=== PATIENT | male | born 1930 | race Caucasian/White ===

== ENCOUNTER → 2016-06-28 | Outpatient (REF) | payer OTHER ==
[~2016-06-28] MED LIST: /METO25TAB PO; ACET-654 PO; ACET65TA OR; ALKA SELTZER PO; ASPI325T PO; ASPI325T5 PO; Advil PM PO; BACTDSTA PO; CIPR25SS OR; COLA50CA3 PO; CYMB1CAP PO; FINA5TAB2 PO; GLUC500C4 PO; GLUC500T3 PO; LEVA500T OR; LEVO100T PO; LIPI20TA PO; LOPR50TA OR; LOPR50TA PO; Lovastatin PO; MULTIVIT PO; OXYC-208 PO; PENN1.5S2 TOP; PRIL20CA OR; PRIL20TA2 PO; PROP150T PO; STOO100C PO; SYNT50TA PO; TYLE325T5 PO; VESI10TA PO; Vitamin E PO; [UNRECOGNIZED DRUG - OTHER] PO; alleve PO
[2016-06-28 18:18] LABS: ALBUMIN 3.7 GM/DL (3.2-5.2); ALBUMIN/GLOBULIN RATIO 1.06 (1.00-1.93); BILIRUBIN,TOTAL 0.4 MG/DL (0.2-1.0); CALCIUM LEVEL 8.8 MG/DL (8.8-10.2); CREATININE FOR GFR 1.31 MG/DL (0.70-1.30); FREE T4 0.63 NG/DL (0.76-1.46); GLOMERULAR FILTRATION RATE 55.4 (>35); POTASSIUM SERUM 4.5 MEQ/L (3.5-5.1); TOTAL PROTEIN 7.2 GM/DL (6.4-8.2)
== END ==
LOC: M SFHCCLAY 13:43
PROVIDERS: ATTEND Family Medicine
DX: E78.2 Mixed hyperlipidemia (principal); E03.9 Hypothyroidism, unspecified

== ENCOUNTER → 2016-07-02 | Outpatient (CLI) | payer OTHER ==
--- NOTE | 2016-07-04 02:08 | ECWPNPC ---
PATIENT NAME: GALE SANDOVAL : 1930 GENDER: MALE VISIT DATE: 07/02/2016 DISCHARGE DATE: 07/02/161538 VISIT LOCKED DATE TIME: PHYSICIAN: GIDEON CROOKS PHYSICIAN PAGER NO: [phone] RESOURCE: GIDEON CROOKS REASON FOR APPOINTMENT 1. 6MO F/U VISIT HISTORY OF PRESENT ILLNESS HISTORY OF PRESENT ILLNESS: 85 Y/O MALE HERE FOR ROUTINE F/U AND MANAGEMENT OF CHRONIC GENERALIZED PAIN. RATING PAIN VAS 0/10.TAKING CYMBALTA 30MG DAILY.FINDS CYMBALTA EFFECTIVE AT REDUCING PAIN AND KEEPING HIM COMFORTABLE.DENIES SIDE EFFECTS.REPORTING WEAKNESS ISSUES PERIODICALLY IN LEGS WHEN WALKING WITHOUT CANE. PAIN THE PATIENT DESCRIBES THE PAIN... THE PATIENT DESCRIBES THE PAIN... FALL RISK SCREENING: SCREENING :NO FALLS IN THE PAST YEAR CURRENT MEDICATIONS TAKING COLACE 100 MG CAPSULE 1 CAPSULE NEEDED ORALLY FOUR TIMES DAILY TAKING GLUCOSAMINE 550 MG CAPSULE 2 ORALLY 1000MG TWICE DAILY TAKING ASPIRIN 325MG TABLET CHEWABLE 1 TABLET ORALLY ONCE A DAY TAKING PROPAFENONE HCL 150MG 1 TAB ORALLY BID TAKING MULTI FOR HIM TABLET 2 ORALLY CHEWABLES DAILY TAKING DULOXETINE HCL 30 MG CAPSULE DELAYED RELEASE PARTICLES 1 CAPSULE ORALLY DAILY TAKING PRILOSEC OTC 20 MG TABLET DELAYED RELEASE 1 TABLET ORALLY ONCE A DAY TAKING LEVOTHYROXINE SODIUM 50MCG TABLET 1 TABLET EVERY MORNING ON AN EMPTY STOMACH ORALLY DAILY TAKING MYRBETRIQ 50 MG TABLET EXTENDED RELEASE 24 HOUR 1 TABLET ORALLY ONCE A DAY TAKING LOVASTATIN 40 MG TABLET 1 TABLET WITH A MEAL ORALLY ONCE A DAY TAKING MYRBETRIQ 50 MG TAB TAKE ONE TABLET BY MOUTH EVERY DAY TAKING VITAMIN E 200 UNIT CAPSULE 1 CAPSULE ORALLY ONCE A DAY DISCONTINUED VITAMIN E 800 IU 1 DAILY MEDICATION LIST REVIEWED AND RECONCILED WITH THE PATIENT PAST MEDICAL HISTORY HYPOTHYROID HX STOMACH ULCERS ELEVATED TRIGLYCERIDES ELEVATED CHOLESTEROL HEART PALPITATIONS HERNIAS UTI BPH ALLERGIES MSG: NAUSEA/VOMITING: CONTRAINDICATION PREVACID: COLD CHILLS AND SHAKES: SIDE EFFECTS ADVIL PM: ELEVATED HEART RATE: CONTRAINDICATION CIPRO: RASH: ALLERGY LEVAQUIN: RASH: ALLERGY SOCIAL HISTORY GENERAL: PAIN CLINIC PFS, CLERGY, PUBLIC HEALTH REFERRALS CLERGY REFERRAL NEEDED?NO WAS THE PROVIDER NOTIFIED OF ANY PERTINENT INFO?NO PFS REFERRAL NEEDED?NO PUBLIC HEALTH REFERRAL NEEDED?NO PATIENT: ____. REVIEW OF SYSTEMS CONSTITUTIONAL: ANY CHANGE IN YOUR MEDICAL CONDITION? NO . CHILLS NO . FEVER NO . INFECTION: DO YOU HAVE NEW INFECTIONS? NO . DO YOU HAVE HISTORY OF MRSA? NO . MUSCULOSKELETAL: ANY NEW PATTERNS OF PAIN OR NUMBNESS? NO . GASTROENTEROLOGY: ANY NEW CHANGE IN BOWEL CONTROL? NO . GENITOURINARY: ANY NEW CHANGE IN BLADDER CONTROL? NO . IS THERE A CHANCE YOU COULD BE ? NO . HEMATOLOGY/LYMPH: DO YOU TAKE ANY BLOOD THINNERS? (FOR EXAMPLE- COUMADIN, PLAVIX, AGGRENOX, PLATEL, PRADAXA, OR XARELTO) NO . WHEN WAS YOUR LAST DOSE? DATE: TIME: . NEUROLOGY: HAVE YOU FALLEN IN THE PAST 6 MONTHS? NO . ANY NEW EXTREMITY NUMBNESS OR WEAKNESS? NO . CARDIOLOGY: DO YOU HAVE A PACEMAKER OR DEFIBRILLATOR? NO . RESPIRATORY: HAVE YOU BEEN SICK IN THE PAST WEEK? NO . FEVER NO . FLU LIKE SYMPTOMS? NO . COUGH NO . INTEGUMENTARY: DO YOU HAVE ANY RASHES OR OPEN SORES? NO . ALLERGIC/IMMUNO: ARE YOU ALLERGIC TO SHELLFISH OR IV DYE? NO . ANY NEW ALLERGIES? NO . PSYCHIATRIC: DO YOU HAVE THOUGHTS OF HURTING YOURSELF OR SOMEONE ELSE? NO . ARE YOU ABUSED, NEGLECTED, OR IN AN UNSAFE ENVIRONMENT? NO . ENDOCRINOLOGY: ARE YOU DIABETIC? NO . OTHER: DO YOU NEED ANY PRESCRIPTIONS? NO . IF YES, PLEASE LIST: ____ . ANY NEW PROBLEMS WITH YOUR MEDICATIONS? NO . WHEN DID YOU LAST EAT? ____ . WHEN DID YOU LAST DRINK? ____ . WHAT DID YOU LAST DRINK? ____ . NAME OF PERSON DRIVING YOU HOME? ____ . DO YOU HAVE ANY OTHER QUESTIONS OR CONCERNS NO . REVIEWED BY: PROVIDER: GIDEON ROGERS . VITAL SIGNS WT 163 LBS, HT 68 IN, BMI 24.78 INDEX, BP 111/58 MM HG, HR 68 /MIN, RR 16 /MIN, TEMP 99.0 F, OXYGEN SAT % 92%, NA INITIALS SC 15:14, REVIEWED BY: AD. EXAMINATION GENERAL EXAMINATION: LUNGS:LUNG SOUNDS ARE CLEAR. HEART:HEART RATE REGULAR. MUSCULOSKELETAL:*, MUSCLE STRENGTH TESTING 5/5 BILATERAL, PALPATION: NEGATIVE FOR PAIN OVER L/S SPINE. NEGATIVE FOR PAIN OVER L/S PARSPINALS. ASSESSMENTS CHRONIC BILATERAL LOW BACK PAIN WITHOUT SCIATICA - M54.5 (PRIMARY) TREATMENT CHRONIC BILATERAL LOW BACK PAIN WITHOUT SCIATICA REFILL DULOXETINE HCL CAPSULE DELAYED RELEASE PARTICLES, 30 MG, 1 CAPSULE, ORALLY, DAILY, 90 DAY(S), 90 CAPSULE, REFILLS 1 PROCEDURE CODES FA211 ESTABILISHED PATIENT [facility] CHARGE DISPOSITION & COMMUNICATION FOLLOW UP 6 MONTHS ELECTRONICALLY SIGNED BY SUE PETERSEN ON 07/02/2016 AT 03:42 PM EDT DISCLAIMER : THIS IS A VISIT SUMMARY EXTRACTED FROM THE [employer] CHART. IT IS NOT A COPY OF THE [employer] PROGRESS NOTE. MTDD
== END ==
LOC: M PAIN 15:00
PROVIDERS: ATTEND Nurse Practitioner Family
DX: G89.4 Chronic pain syndrome (principal); M54.5 Low back pain; E03.9 Hypothyroidism, unspecified; E78.2 Mixed hyperlipidemia; R00.2 Palpitations; Z91.02 Food additives allergy status; Z88.8 Allergy status to other drugs, medicaments and biological substances; Z79.82 Long term (current) use of aspirin; Z79.899 Other long term (current) drug therapy

== ENCOUNTER → 2016-07-16 | Outpatient (REF) | payer OTHER | LOC: M SMT 16:59 | PROVIDERS: ATTEND Nurse Practitioner Women's Health | DX: R39.15 Urgency of urination (principal) | CPT/HCPCS: 51798; 81001; 87086; G0463 ==

== ENCOUNTER → 2016-10-02 | Outpatient (REF) | payer OTHER ==
[~2016-10-02] MED LIST changes: +ALEV220T22 PO; +FURO20TA2 PO; +LEVO75TA4 PO; +LISI-542 PO; +LOVA40TA PO; +METO1TAB32 PO; +METO25TA PO; +MIDO5TA PO; +MYRB50TA PO; +NATU400T PO; +VITACHTA PO
[2016-10-02 17:15] LABS: MEAN CORPUSCULAR HEMOGLOBIN 29.8 pg (27.0-33.0); MEAN CORPUSCULAR HGB CONC 32.5 g/dl (32.0-36.5); MEAN CORPUSCULAR VOLUME 91.8 fl (80.0-96.0); RED CELL DISTRIBUTION WIDTH 13.3 % (11.5-14.5); WHITE BLOOD COUNT 5.2 K/mm3 (4.0-10.0)
[2016-10-02 19:02] LABS: FREE T4 0.86 NG/DL (0.76-1.46)
== END ==
LOC: M SFHCCLAY 13:57
PROVIDERS: ATTEND Family Medicine
DX: R53.83 Other fatigue (principal); E03.9 Hypothyroidism, unspecified; Z79.899 Other long term (current) drug therapy

== ENCOUNTER 2016-12-20 10:03 | Inpatient (IN) | payer OTHER, MEDICARE ==
[~2016-12-20] VITALS: Ht 172.7 cm; Wt 64.8 kg
[2016-12-20] MEDS: METOPROLOL SUCC *XL* 12.5MG PER 1/2 TAB (TopROL *XL*) PO SCH (09:00)
[~2016-12-20 10:03] MED LIST changes: -ALEV220T22 PO; -FURO20TA2 PO; -LEVO75TA4 PO; -LISI-542 PO; -LOVA40TA PO; -METO1TAB32 PO; -METO25TA PO; -MIDO5TA PO; -MYRB50TA PO; -NATU400T PO; -VITACHTA PO
[2016-12-20] MEDS ORDERED: LEVO75TA4 PO (10:23)
[2016-12-20] MEDS ORDERED: METO1TAB32 PO (10:23)
[2016-12-20] MEDS ORDERED: FURO20TA2 PO ×2 (10:23→11:04)
[2016-12-20] MEDS ORDERED: METO25TA PO (10:23)
[2016-12-20 10:44] LABS: BASO % 0.4 % (0.0-1.0); EOS # 0.1 10^3/uL (0.0-0.50); IMMATURE GRANULOCYTE % 0.1 % (0-0); LYMPH # 1.4 10^3/uL (1.5-4.5); LYMPH % 19.5 % (24.0-44.0); MEAN CORPUSCULAR HEMOGLOBIN 28.9 pg (27.0-33.0); MEAN CORPUSCULAR HGB CONC 32.8 g/dl (32.0-36.5); MEAN CORPUSCULAR VOLUME 88.3 fl (80.0-96.0); MONO # 0.4 10^3/uL (0.0-0.8); MONO % 6.3 % (0.0-5.0); NEUTROPHILS # 5.1 10^3/uL (1.8-7.7); NEUTROPHILS % 72.7 % (36.0-66.0); PLATELET COUNT, AUTOMATED 206 10^3/uL (150-450); RED CELL DISTRIBUTION WIDTH 13.8 % (11.5-14.5)
[2016-12-20 10:56] LABS: INR 0.85
--- NOTE | 2016-12-20 10:58 | REP ---
CT Head without contrast HISTORY: Trauma COMPARISON: 01/18/2012 Areas of decreased attenuation are present in the periventricular and subcortical white matter. This represents small-vessel ischemic disease. There is no intraparenchymal hemorrhage, acute infarct, mass or midline shift. The ventricular system and cortical sulci as well as subarachnoid space in the posterior fossa are dilated consistent with moderate volume loss. There is no extra cerebral collection. There is no fracture. Mucosal thickening is present in the left frontal sinus. IMPRESSION: 1. Small vessel ischemic disease. 2. Moderate volume loss. Signed by Carlyle Garnica MD 12/20/2016 10:50 A
--- NOTE | 2016-12-20 11:03 | REP ---
Chest one-view HISTORY: Syncope Comparison: 01/10/2016 The lungs are clear. The heart is normal in size. The pulmonary vasculature is normal in appearance. Impression: No acute disease. Signed by Carlyle Garnica MD 12/20/2016 10:55 A
[2016-12-20] MEDS ORDERED: LOVA40TA PO (11:04)
[2016-12-20] MEDS ORDERED: NATU400T PO (11:04)
[2016-12-20] MEDS ORDERED: MYRB50TA PO (11:04)
[2016-12-20] MEDS ORDERED: ALEV220T22 PO (11:04)
[2016-12-20 11:16] LABS: CALCIUM LEVEL 9.3 MG/DL (8.8-10.2); CREATININE FOR GFR 1.51 MG/DL (0.70-1.30); FREE T4 0.76 NG/DL (0.76-1.46); GLOMERULAR FILTRATION RATE 46.9 (>35); MAGNESIUM LEVEL 2.4 MG/DL (1.8-2.4); POTASSIUM SERUM 3.6 MEQ/L (3.5-5.1)
[2016-12-20] MEDS ORDERED: NS 500 ML IV ONE (11:30)
[2016-12-20] MEDS ORDERED: VITACHTA PO (11:38)
--- NOTE | 2016-12-20 13:58 | HPEPDOC ---
[facility] Medical History & Physical Date of Admission Dec 19, 2016 History and Physical ATTENDING: Dr. Humphries PCP: Dr Hogan Art Specialist. Dr. Wilson Pain management. [facility] pain management CC: Syncope HPI: 86yoM with a past medical history significant for diastolic CHF, PAF, hypertension, who states he was having increased edema over the past 1 week. He was advised to take his Lasix 20 mg alternating with 40 mg daily and add Zaroxolyn 2.5 mg daily for the past 3 days. He states his lower extremity edema has been much improved since this change. Today, he states he is getting up to let the dog out at the front door. He was sitting at the side couch and felt somewhat weak and dizzy and he waited for a minute related to this. He was walking to the front door when he felt weak and dizzy and lightheaded, then fell to the ground. He states he remembers falling. He denies loss of consciousness. He states he had a similar spell yesterday as well. He uses a walker to help him with ambulation. He denies any nausea, vomiting, vertigo, diarrhea. No recent illnesses. He has been eating and drinking. He denies loss of bowel control, he has chronic urinary incontinence. He denies any jerking movements. Denies any unresponsive episodes. Denies any fevers, chills, weakness, fatigue, CORTEZ, CP, SOB, cough, palpitations, abdominal pain, N/V/D or changes in bowel or bladder habits. Upon presentation to the hospital the patient was found to have syncopal/ presyncopal episode, thus the hospitalist team was consulted. PMH PAF Hypertension GERD Chronic pain/chronic low back pain Hypothyroidism CHF TTE 01/20 diastolic dysfunction, EF 65%. hyperlipidemia CKD OAB SURGICAL HISTORY CATARACT REMOVAL BOTH EYE 06/2010 PARTIAL THYROIDECTOMY BUTTON TURP 05/21/2012 SOCHX: Resides in: [facility] Marital Status: Kids: 5 Employment: Retired diesel truck driver Tobacco use: Quit 6 years ago ETOH: Quit 6 years ago Illicit Drugs: Denies Recent travel: Denies Advanced directives: Helen Tyler, daughter. FAMHX: Children: One son MVA ROS: As noted in HPI, otherwise 11pt ROS of systems reviewed and remarkable only for chronic urinary incontinence. Lives alone. Uses a walker. Sleeps on a couch. PE: GEN: 86 yoM, appears stated age. Appears disheveled, unkept. No acute distress. Alert and oriented x 3. Pleasant, interactive. HEENT: Normocephalic, atraumatic. Pupils are equal, round, and reactive to light. Extraocular movements are intact. No nystagmus appreciated. Sclera are nonicteric. Conjunctiva without injection. Nose midline. Nasal turbinates without bogginess. EACs both patent BL. TMs both visualized and anaya with good cone of light, no bulging or erythema. No facial asymmetry. Moist mucous membranes. Dentition fair. Pharynx pink and moist, no cobblestoning. Neck supple , trachea midline. No lymphadenopathy or thyromegaly appreciated. CHEST: Regular rate and rhythm, +S1, +S2 LUNGS: Clear to auscultation bilaterally. No wheezes, rales, or rhonchi. Breathing appears symmetric and easy. Patient is speaking in full sentences. No accessory muscle use. ABD: Round, soft, non-tender, non-distended. +Bowel sounds throughout. No rebound or guarding. No costovertebral angle tenderness. EXT: Pulses 2+ bilaterally dorsalis pedis and radial. Trace edema noted at distal pretibial area and ankles. SKIN: [place], dry, warm. Capillary refill <2sec. No rashes. NEURO: Alert and oriented x 3. Cranial nerves III-XII are intact. No focal deficits appreciated. CXR: No acute disease. CT: 1. Small vessel ischemic disease. 2. Moderate volume loss EKG: Sinus bradycardia 54 bpm UA/urine culture pending. Blood cultures pending. A&P: 86yoM with a past medical history significant for diastolic CHF, PAF, hypertension, who states he was having increased edema over the past 1 week. He was advised to take his Lasix 20 mg alternating with 40 mg daily and add Zaroxolyn 2.5 mg daily for the past 3 days. He states his lower extremity edema has been much improved. Today, he states he is getting up to let the dog out at the front door. He was sitting at the side couch and felt somewhat weak and dizzy. He was walking to the front door when he felt weak and dizzy and fell to the ground. He remembers falling. He denies loss of consciousness. He states he had a similar spell yesterday as well. 1. The patient will be admitted to PCU for at least [address] Humphries 's service. Patient was discussed with Dr. Christianson. 2. Presyncope/syncopal episode. Symptoms sound consistent with orthostasis possibly related to recent change in diuretic regimen. PCU/TM. Hold diuretics temporarily. IV fluids 500 mL bolus 1 in the ED given. Gentle IV fluid hydration 60 mL per hour. Orthostatic vital signs. 3. MARIXA on CKD. Baseline appears to be 1.1-1.3. Currently 1.51. IV fluids as noted above. Temporarily hold diuretics. Avoid NSAID or nephrotoxic agents. UA/urine culture. 4. HTN/CHF. Diastolic. Temporarily hold diuretics. Metoprolol with hold parameters. Monitor. 5. Chronic pain. Continue Cymbalta. 6. Paroxysmal atrial fibrillation. PCU/TM. Serial CIP/troponin. Continue Propafenone. Continue aspirin 325 mg daily. 7. GERD. Continue PPI. 8. Hypothyroid. Continue supplement. Check TSH. 9. OAB/chronic incontinence. UA/UC pending. 10. Hyperlipidemia. Continue statin. DVT prophylaxis. The patient is a Full code Vital Signs Vital Signs Date Time Temp Pulse Resp B/P (MAP) Pulse Ox O2 Delivery O2 Flow Rate FiO2 12/20/16 11:23 60 138/65 (89) 74 100/54 (69) 86 91/53 (66) 12/20/16 10:25 99.0 18 98 Room Air Laboratory Data Labs 24H Laboratory Tests 2 12/20/16 10:32: Immature Granulocyte % (Auto) 0.1H, White Blood Count 7.0, Red Blood Count 4.70 , Hemoglobin 13.6L, Hematocrit 41.5L, Mean Corpuscular Volume 88.3, Mean Corpuscular Hemoglobin 28.9, Mean Corpuscular Hemoglobin Concent 32.8, Red Cell Distribution Width 13.8, Platelet Count 206, Neutrophils (%) (Auto) 72.7H, Lymphocytes (%) (Auto) 19.5L, Monocytes (%) (Auto) 6.3H, Eosinophils (%) (Auto) 1.0, Basophils (%) (Auto) 0.4, Neutrophils # (Auto) 5.1, Lymphocytes # (Auto) 1.4L, Monocytes # (Auto) 0.4, Eosinophils # (Auto) 0.1, Basophils # (Auto) 0.0, Immature Granulocyte # (Auto) 0.0, Nucleated Red Blood Cells % (auto) 0.0, Prothrombin Time 11.7L, Prothromb Time International Ratio 0.85, Anion Gap 6L, Glomerular Filtration Rate 46.9, Blood Urea Nitrogen 29H, Creatinine 1.51H, Sodium Level 136, Potassium Level 3.6, Chloride Level 95L, Carbon Dioxide Level 35H, Calcium Level 9.3, Total Creatine Kinase 110, Magnesium Level 2.4, Creatine Kinase MB 2.8, Creatine Kinase MB Relative Index 2.54, Troponin I 0.11H , Thyroid Stimulating Hormone (TSH) 7.300H, Free Thyroxine 0.76 CBC/BMP Laboratory Tests 12/20/16 10:32 Red Blood Count 4.70, Mean Corpuscular Volume 88.3, Mean Corpuscular Hemoglobin 28.9, Mean Corpuscular Hemoglobin Concent 32.8, Red Cell Distribution Width 13.8 , Neutrophils (%) (Auto) 72.7 H, Lymphocytes (%) (Auto) 19.5 L, Monocytes (%) ( Auto) 6.3 H, Eosinophils (%) (Auto) 1.0, Basophils (%) (Auto) 0.4, Neutrophils # (Auto) 5.1, Lymphocytes # (Auto) 1.4 L, Monocytes # (Auto) 0.4, Eosinophils # (Auto) 0.1, Basophils # (Auto) 0.0, Calcium Level 9.3, Total Creatine Kinase 110 Home Medications Scheduled Alpha Tocopheryl Acid Succinat (Vitamin E) 400 Unit Tab, 400 UNIT PO QHS Aspirin (Aspirin) 325 Mg Tab, 325 MG PO DAILY Duloxetine Hcl (Cymbalta) 30 Mg Cap, 30 MG PO QHS Furosemide (Furosemide) 20 Mg Tab, 20 MG PO DAILY Glucosamine Sulfate (Glucosamine) 500 Mg Cap, 550 MG PO TID Levothyroxine Sodium (Synthroid) 75 Mcg Tab, 75 MCG PO DAILY Lisinopril (Lisinopril) 5 Mg Tab, 5 MG PO DAILY Lovastatin (Lovastatin) 40 Mg Tab, 40 MG PO DAILY Metoprolol Succinate (Metoprolol Succinate ER) 25 Mg Tab, 12.5 MG PO QHS Midodrine HCl (Midodrine HCl) 5 Mg Tab, 5 MG PO TID@0700,1300,1800 Mirabegron Base (Myrbetriq) 50 Mg Tab, 50 MG PO QHS Multivitamins Chewable *SMC STOCKED* (Animal Shapes with C & FA *[facility] STOCKED*) 1 Tab Chew, 2 TAB PO DAILY Omeprazole Magnesium (Prilosec Otc) 20 Mg Tab, 20 MG PO DAILY Propafenone Hcl (Propafenone Hcl) 150 Mg Tab, 150 MG PO BID Scheduled PRN (Aleve Arthritis) 220 Mg Tab, 220 MG PO for PAIN Allergies Coded Allergies: Quinolones (Verified Allergy, Intermediate, LEVAQUIN - ITCHING, VEINS RED - CIPRO SWELLING, RASH, 06/23/12) Monosodium Glutamate (Verified Adverse Reaction, Intermediate, SICK TO STOMACH, 06/09/12) Lansoprazole (Verified Adverse Reaction, Mild, SHAKING, 06/09/12) Mckenzie Ocasio Dec 20, 2016 13:58
[2016-12-20 16:47] VITALS: BP 148/75
[2016-12-20] MEDS: OMEPRAZOLE 20 MG CAP PO SCH (17:47)
[2016-12-20] MEDS: NS 1,000 ML IV SCH (17:48)
[2016-12-20] MEDS: ENOXAPARIN 40 MG/0.4 ML SYRINGE (J1650) SC SCH (17:48)
[2016-12-20] MEDS: ASPIRIN ENTERIC 325 MG TAB PO SCH (17:48)
[2016-12-20] MEDS: LEVOTHYROXINE 75MCG TABLET (0.075MG) PO SCH (17:48)
[2016-12-20] MEDS: MULTIVITAMINS CHILDREN'S CHEWABLE TABLET PO SCH (18:41)
[2016-12-20 20:00] VITALS: BP_SYST 114; BP_SYST 116; BP_SYST 84; BP_DIAS 52; BP_DIAS 53; BP_DIAS 59
[2016-12-20] MEDS: SIMVASTATIN 40 MG TAB PO SCH (21:35)
[2016-12-20] MEDS: PROPAFENONE 150 MG TAB PO SCH (21:35)
[2016-12-20] MEDS: DULoxetine 30 MG CAP (CYMBALTA) PO SCH (21:37)
[2016-12-21] VITALS (8 sets, daily range): BP systolic 100–153; BP diastolic 52–84
[2016-12-21 06:03] LABS: MEAN CORPUSCULAR HEMOGLOBIN 29.3 pg (27.0-33.0); MEAN CORPUSCULAR HGB CONC 33.5 g/dl (32.0-36.5); MEAN CORPUSCULAR VOLUME 87.5 fl (80.0-96.0); RED CELL DISTRIBUTION WIDTH 14.2 % (11.5-14.5); WHITE BLOOD COUNT 10.4 10^3/uL (4.0-10.0)
[2016-12-21 06:25] LABS: ALBUMIN 2.8 GM/DL (3.2-5.2); ALBUMIN/GLOBULIN RATIO 0.85 (1.00-1.93); BILIRUBIN,TOTAL 0.9 MG/DL (0.2-1.0); CALCIUM LEVEL 8.1 MG/DL (8.8-10.2); CREATININE FOR GFR 1.28 MG/DL (0.70-1.30); GLOMERULAR FILTRATION RATE 56.7 (>35); MAGNESIUM LEVEL 1.9 MG/DL (1.8-2.4); POTASSIUM SERUM 2.7 MEQ/L (3.5-5.1); THYROXINE (T4) 5.7 UG/DL (4.5-12.0); TOTAL PROTEIN 6.1 GM/DL (6.4-8.2)
[2016-12-21] MEDS: LEVOTHYROXINE 75MCG TABLET (0.075MG) PO SCH (06:27)
[2016-12-21] MEDS: POTASSIUM CHLORIDE 10 MEQ SR TABLET PO SCH ×2 (06:47→11:24)
--- NOTE | 2016-12-21 07:38 | ECGEPIP ---
Stationary ECG Study [facility] - ED Test Date: 2016-12-20 Pat Name: GALE SANDOVAL Department: Room: - Gender: M Financial Aid Director: JT : 1930 Requested By: Marcela Duncan Order Number: [id number] Reading MD: Marcela Duncan Measurements Intervals [place] Rate: 54 P: -25 [place]: 170 QRS: 78 QRSD: 106 T: 67 QT: 469 QTc: 446 Interpretive Statements SINUS BRADYCARDIA NSTTW ABNORMALITY DECREASED RATE 01/10/16 Electronically Signed On 12-21-2016 7:38:24 EDT by Marcela Duncan
[2016-12-21] MEDS: PROPAFENONE 150 MG TAB PO SCH ×2 (07:57→23:02)
[2016-12-21] MEDS: ASPIRIN ENTERIC 325 MG TAB PO SCH (07:57)
[2016-12-21] MEDS: NS 1,000 ML IV SCH ×2 (07:57→23:02)
[2016-12-21] MEDS: MULTIVITAMINS CHILDREN'S CHEWABLE TABLET PO SCH (07:57)
[2016-12-21] MEDS: OMEPRAZOLE 20 MG CAP PO SCH (07:57)
[2016-12-21] MEDS: ENOXAPARIN 40 MG/0.4 ML SYRINGE (J1650) SC SCH (07:58)
--- NOTE | 2016-12-21 08:31 | IPNPDOC ---
Date Seen The patient was seen on 12/21/16. Progress Note SUBJECTIVE: Patient is a 86 yo male admitted last evening for syncope / weakness and falling at home. No reported LOC. Denies: CP, SOB, PROD COUGH, n/v/d, change in bladder or bowel habits. However, he was noted to have positive orthostatics likely for overdiuresis with metolazone. OBJECTIVE PHYSICAL EXAMINATION: VITAL SIGNS: Please see below. GENERAL: NAD, A&oX3 HEENT: PERRLA, throat clear, neck supple, no JVD, neck veins appear flat CARDIOVASCULAR: RRR. RESPIRATORY: CTA BILATERALLY. ABDOMINAL: soft, NT/ND, normoactive BS, no rebound EXTREMITIES: no edema NEUROLOGICAL: CN II-XII grossly intact PSYCHOLOGICAL: negative LABORATORY DATA: Please see below. Echocardiogram: last echo 2011 showed grade I diastolic dysfunction and LVEF 65% . DVT prophylaxis ordered?: YES ASSESSMENT AND PLAN: 86 yo male admitted for syncope/near syncope and weakness with falls at home that I suspect is more likely from orthostatic hypotension. PROBLEMS: 2. Presyncope/syncopal episode. Symptoms sound consistent with orthostasis possibly related to recent change in diuretic regimen. PCU/TM for another 24hrs. Hold diuretics temporarily. Gentle IV fluid hydration 60 mL per hour. Orthostatic vital signs. Once normalized will try to reintroduce an appropriate dose of diuretics. 3. MARIXA on CKD. Baseline appears to be 1.1-1.3. Currently 1.28 (improved) IV fluids as noted above. Continue to temporarily hold diuretics. Avoid NSAID or nephrotoxic agents. UA/urine culture. 4. HTN/CHF. Diastolic. Temporarily hold diuretics. Metoprolol with hold parameters. Monitor. 5. Chronic pain. Continue Cymbalta. 6. Paroxysmal atrial fibrillation. PCU/TM. otherwise appears stable, watch on tele another 24hrs. Serial CIP/troponin trending for now. Continue Propafenone. Continue aspirin 325 mg daily. 7. GERD. Continue PPI. 8. Hypothyroid. Continue supplement. Check TSH. 9. OAB/chronic incontinence. UA/UC pending. 10. Hyperlipidemia. Continue statin. DVT prophylaxis lovenox sq. DISPOSITION: Watch on tele another 24 hrs with orthostatics. PT eval and PFS consult.. VS, I&O, 24H, Fishbone Vital Signs/I&O Vital Signs Date Time Temp Pulse Resp B/P (MAP) Pulse Ox O2 Delivery O2 Flow Rate FiO2 12/21/16 04:00 98.9 65 20 100/52 (68) 96 Room Air Laboratory Data 24H LABS Laboratory Tests 2 12/20/16 10:32: Immature Granulocyte % (Auto) 0.1H, White Blood Count 7.0, Red Blood Count 4.70 , Hemoglobin 13.6L, Hematocrit 41.5L, Mean Corpuscular Volume 88.3, Mean Corpuscular Hemoglobin 28.9, Mean Corpuscular Hemoglobin Concent 32.8, Red Cell Distribution Width 13.8, Platelet Count 206, Neutrophils (%) (Auto) 72.7H, Lymphocytes (%) (Auto) 19.5L, Monocytes (%) (Auto) 6.3H, Eosinophils (%) (Auto) 1.0, Basophils (%) (Auto) 0.4, Neutrophils # (Auto) 5.1, Lymphocytes # (Auto) 1.4L, Monocytes # (Auto) 0.4, Eosinophils # (Auto) 0.1, Basophils # (Auto) 0.0, Immature Granulocyte # (Auto) 0.0, Nucleated Red Blood Cells % (auto) 0.0, Prothrombin Time 11.7L, Prothromb Time International Ratio 0.85, Anion Gap 6L, Glomerular Filtration Rate 46.9, Blood Urea Nitrogen 29H, Creatinine 1.51H, Sodium Level 136, Potassium Level 3.6, Chloride Level 95L, Carbon Dioxide Level 35H, Calcium Level 9.3, Total Creatine Kinase 110, Magnesium Level 2.4, Creatine Kinase MB 2.8, Creatine Kinase MB Relative Index 2.54, Troponin I 0.11H , Thyroid Stimulating Hormone (TSH) 7.300H, Free Thyroxine 0.76 12/20/16 18:09: Total Creatine Kinase 124, Creatine Kinase MB 1.9, Creatine Kinase MB Relative Index 1.53, Troponin I 0.12H 12/21/16 05:16: Nucleated Red Blood Cells % (auto) 0.0, Anion Gap 8, Glomerular Filtration Rate 56.7, Blood Urea Nitrogen 25H, Creatinine 1.28, Sodium Level 136, Potassium Level 2.7#*L, Chloride Level 98, Carbon Dioxide Level 30, Calcium Level 8.1L, Magnesium Level 1.9, Thyroid Stimulating Hormone (TSH) 2.480, Aspartate Amino Transf (AST/SGOT) 18, Alanine Aminotransferase (ALT/SGPT) 11L, Alkaline Phosphatase 52, Total Bilirubin 0.9, Total Protein 6.1L, Albumin 2.8L, Albumin/ Globulin Ratio 0.85L, Free Thyroxine Index 1.9, Thyroxine (T4) 5.7, Triiodothyronine (T3) Uptake 33 CBC/BMP Laboratory Tests 12/20/16 10:32 Red Blood Count 4.70, Mean Corpuscular Volume 88.3, Mean Corpuscular Hemoglobin 28.9, Mean Corpuscular Hemoglobin Concent 32.8, Red Cell Distribution Width 13.8 , Neutrophils (%) (Auto) 72.7 H, Lymphocytes (%) (Auto) 19.5 L, Monocytes (%) ( Auto) 6.3 H, Eosinophils (%) (Auto) 1.0, Basophils (%) (Auto) 0.4, Neutrophils # (Auto) 5.1, Lymphocytes # (Auto) 1.4 L, Monocytes # (Auto) 0.4, Eosinophils # (Auto) 0.1, Basophils # (Auto) 0.0, Calcium Level 9.3, Total Creatine Kinase 110 12/21/16 05:16 Red Blood Count 3.92 L, Mean Corpuscular Volume 87.5, Mean Corpuscular Hemoglobin 29.3, Mean Corpuscular Hemoglobin Concent 33.5, Red Cell Distribution Width 14.2, Calcium Level 8.1 L, Aspartate Amino Transf (AST/SGOT) 18, Alanine Aminotransferase (ALT/SGPT) 11 L, Alkaline Phosphatase 52, Total Bilirubin 0.9, Total Protein 6.1 L, Albumin 2.8 L Microbiology Microbiology 12/20/16 Blood Culture, Received Pending DANTE WATSON DO Dec 21, 2016 08:31
[2016-12-21] MEDS: METOPROLOL SUCC *XL* 12.5MG PER 1/2 TAB (TopROL *XL*) PO SCH (09:00)
[2016-12-21 13:02] LABS: ALBUMIN 3.2 GM/DL (3.2-5.2); CALCIUM LEVEL 8.9 MG/DL (8.8-10.2); CREATININE FOR GFR 1.31 MG/DL (0.70-1.30); GLOMERULAR FILTRATION RATE 55.2 (>35); MAGNESIUM LEVEL 2.3 MG/DL (1.8-2.4); PHOSPHORUS LEVEL 2.3 MG/DL (2.5-4.9); POTASSIUM SERUM 3.4 MEQ/L (3.5-5.1)
[2016-12-21] MEDS: DULoxetine 30 MG CAP (CYMBALTA) PO SCH (23:02)
[2016-12-21] MEDS: SIMVASTATIN 40 MG TAB PO SCH (23:02)
[2016-12-22 04:46] LABS: MEAN CORPUSCULAR HEMOGLOBIN 28.8 pg (27.0-33.0); MEAN CORPUSCULAR HGB CONC 32.8 g/dl (32.0-36.5); MEAN CORPUSCULAR VOLUME 87.7 fl (80.0-96.0); WHITE BLOOD COUNT 7.4 10^3/uL (4.0-10.0)
[2016-12-22 05:10] LABS: ALBUMIN 2.7 GM/DL (3.2-5.2); ALBUMIN/GLOBULIN RATIO 0.82 (1.00-1.93); ALKALINE PHOSPHATASE 53 U/L (45-117); ALT/SGPT 11 U/L (12-78); ANION GAP 8 MEQ/L (8-16); AST/SGOT 20 U/L (15-37); BILIRUBIN,TOTAL 0.7 MG/DL (0.2-1.0); BLOOD UREA NITROGEN 22 MG/DL (7-18); CALCIUM LEVEL 8.3 MG/DL (8.8-10.2); CARBON DIOXIDE LEVEL 28 MEQ/L (21-32); CHLORIDE LEVEL 101 MEQ/L (98-107); CREATININE FOR GFR 1.05 MG/DL (0.70-1.30); GLOMERULAR FILTRATION RATE > 60.0 (>35); GLUCOSE, FASTING 113 MG/DL (83-110); MAGNESIUM LEVEL 1.8 MG/DL (1.8-2.4); POTASSIUM SERUM 3.1 MEQ/L (3.5-5.1); SODIUM LEVEL 137 MEQ/L (136-145)
[2016-12-22 05:56] VITALS: BP 114/78
[2016-12-22] MEDS: LEVOTHYROXINE 75MCG TABLET (0.075MG) PO SCH (06:00)
[2016-12-22] MEDS ORDERED: POTASSIUM CHLORIDE 10 MEQ SR TABLET PO ONE (06:30)
[2016-12-22] MEDS: ACETAMINOPHEN TAB 650MG DOSE (2X325MG) PO PRN ×2 (06:44→21:49)
[2016-12-22] MEDS: ASPIRIN ENTERIC 325 MG TAB PO SCH (07:41)
[2016-12-22] MEDS: MULTIVITAMINS CHILDREN'S CHEWABLE TABLET PO SCH (07:41)
[2016-12-22] MEDS: PROPAFENONE 150 MG TAB PO SCH ×2 (07:41→21:50)
[2016-12-22] MEDS: OMEPRAZOLE 20 MG CAP PO SCH (07:41)
[2016-12-22] MEDS: ENOXAPARIN 40 MG/0.4 ML SYRINGE (J1650) SC SCH (07:42)
[2016-12-22] MEDS: METOPROLOL SUCC *XL* 12.5MG PER 1/2 TAB (TopROL *XL*) PO SCH (07:45)
[2016-12-22 07:46] VITALS: BP 121/59
[2016-12-22 12:00] VITALS: BP_SYST 100; BP_SYST 80; BP_SYST 82; BP_DIAS 44; BP_DIAS 45; BP_DIAS 67
[2016-12-22] MEDS ORDERED: NS 500 ML IV ONE (12:30)
--- NOTE | 2016-12-22 13:15 | IPNPDOC ---
Date Seen The patient was seen on 12/22/16. Progress Note SUBJECTIVE: Patient is a 86 yo male admitted for presyncope felt to be related to orthostasis. He feels much better today. Denies: lightheadedness, CP, SOB, N/ V/D. Tolerating PO intake, voiding fine and regular BMs. OBJECTIVE PHYSICAL EXAMINATION: VITAL SIGNS: Please see below. GENERAL: NAD A&OX3 HEENT: PERRLA, throat clear, neck supple no JVD CARDIOVASCULAR: RRR. RESPIRATORY: CTA bilaterally. ABDOMINAL: soft, NT/ND, normoactive bowelsounds EXTREMITIES: no edema, no calf tenderness NEUROLOGICAL: CN II-XII grossly intact, no deficits PSYCHOLOGICAL: negative LABORATORY DATA: Please see below. DVT prophylaxis ordered?: yes ASSESSMENT AND PLAN: This is a 86 yo with improved symptoms of orthostasis. PROBLEMS: 1. Presyncope/syncopal episode. Symptoms sound consistent with orthostasis possibly related to recent change in diuretic regimen. PCU/TM for another 24hrs. Hold diuretics another 24hrs. IVNS Bolus of 500cc's times one. Continue with Orthostatic vital signs. Once normalized will try to reintroduce an appropriate dose of diuretics. 2. MARIXA on CKD. Baseline appears to be 1.1-1.3. Currently 1.05 (improved/baseline) However, he's still clinically orthostatic. IV fluids as noted above. Continue to temporarily hold diuretics. Avoid NSAID or nephrotoxic agents. UA/urine culture: negative. 3. Hypokalemia: will supplement 4. HTN/CHF. Diastolic. Temporarily hold diuretics. Metoprolol with hold parameters. Monitor. 5. Chronic pain. Continue Cymbalta. 6. Paroxysmal atrial fibrillation. PCU/TM. otherwise appears stable, watch on tele another 24hrs. Serial CIP/troponin: negative. Continue Propafenone. Continue aspirin 325 mg daily. 7. GERD. Continue PPI. 8. Hypothyroid. Continue supplement. Check TSH. 9. OAB/chronic incontinence. UA/UC negative. 10. Hyperlipidemia. Continue statin. DVT prophylaxis lovenox sq. DISPOSITION: Will downgrade to MED/SURG on remote tele and anticipate further work with PT tomorrow and see how his Orthostatics are.. VS, I&O, 24H, Fishbone Vital Signs/I&O Vital Signs Date Time Temp Pulse Resp B/P (MAP) Pulse Ox O2 Delivery O2 Flow Rate FiO2 12/22/16 08:00 Room Air 12/22/16 07:46 99.1 82 18 121/59 (79) 94 I&O- Last 24 Hours up to 6 AM 12/23/16 06:00 Intake Total 360 ml Balance 360 ml Laboratory Data 24H LABS Laboratory Tests 2 12/21/16 12:06: Blood Urea Nitrogen 27H, Creatinine 1.31H, Sodium Level 137, Potassium Level 3.4 #L, Chloride Level 97L, Carbon Dioxide Level 30, Anion Gap 10, Glomerular Filtration Rate 55.2, Calcium Level 8.9, Phosphorus Level 2.3L, Magnesium Level 2.3, Albumin 3.2 12/22/16 04:01: Blood Urea Nitrogen 22H, Creatinine 1.05, Sodium Level 137, Potassium Level 3.1L , Chloride Level 101, Carbon Dioxide Level 28, Anion Gap 8, Glomerular Filtration Rate > 60.0, Calcium Level 8.3L, Magnesium Level 1.8, Albumin 2.7L, Nucleated Red Blood Cells % (auto) 0.0, Aspartate Amino Transf (AST/SGOT) 20, Alanine Aminotransferase (ALT/SGPT) 11L, Alkaline Phosphatase 53, Total Bilirubin 0.7, Total Protein 6.0L, Albumin/Globulin Ratio 0.82L CBC/BMP Laboratory Tests 12/21/16 12:06 Anion Gap 10 12/22/16 04:01 Red Blood Count 3.75 L, Mean Corpuscular Volume 87.7, Mean Corpuscular Hemoglobin 28.8, Mean Corpuscular Hemoglobin Concent 32.8, Red Cell Distribution Width 14.0, Calcium Level 8.3 L, Aspartate Amino Transf (AST/SGOT) 20, Alanine Aminotransferase (ALT/SGPT) 11 L, Alkaline Phosphatase 53, Total Bilirubin 0.7, Total Protein 6.0 L, Albumin 2.7 L Microbiology Microbiology 12/20/16 Blood Culture - Preliminary, Resulted No growth after 24 hours . All specim... DANTE WATSON DO Dec 22, 2016 13:15
[2016-12-22 21:46] VITALS: BP 119/58
[2016-12-22 21:47] VITALS: BP_SYST 102; BP_SYST 110; BP_SYST 119; BP_DIAS 56; BP_DIAS 58
[2016-12-22] MEDS: SIMVASTATIN 40 MG TAB PO SCH (21:50)
[2016-12-22] MEDS: DULoxetine 30 MG CAP (CYMBALTA) PO SCH (21:50)
[2016-12-23] VITALS (7 sets, daily range): BP systolic 98–140; BP diastolic 56–78
[2016-12-23] MEDS: LEVOTHYROXINE 75MCG TABLET (0.075MG) PO SCH (05:21)
[2016-12-23] MEDS: ACETAMINOPHEN TAB 650MG DOSE (2X325MG) PO PRN (05:21)
[2016-12-23 05:22] LABS: MEAN CORPUSCULAR HEMOGLOBIN 29.2 pg (27.0-33.0); MEAN CORPUSCULAR HGB CONC 33.1 g/dl (32.0-36.5); MEAN CORPUSCULAR VOLUME 88.2 fl (80.0-96.0); RED CELL DISTRIBUTION WIDTH 14.2 % (11.5-14.5); WHITE BLOOD COUNT 7.4 10^3/uL (4.0-10.0)
[2016-12-23] MEDS ORDERED: SLF 3 ML SYR IV PRN (05:45)
[2016-12-23 05:46] LABS: ALBUMIN 2.5 GM/DL (3.2-5.2); ALBUMIN/GLOBULIN RATIO 0.66 (1.00-1.93); ALKALINE PHOSPHATASE 62 U/L (45-117); ALT/SGPT 10 U/L (12-78); ANION GAP 6 MEQ/L (8-16); AST/SGOT 21 U/L (15-37); BILIRUBIN,TOTAL 0.6 MG/DL (0.2-1.0); BLOOD UREA NITROGEN 17 MG/DL (7-18); CALCIUM LEVEL 8.2 MG/DL (8.8-10.2); CARBON DIOXIDE LEVEL 29 MEQ/L (21-32); CHLORIDE LEVEL 102 MEQ/L (98-107); CREATININE FOR GFR 0.92 MG/DL (0.70-1.30); GLOMERULAR FILTRATION RATE > 60.0 (>35); GLUCOSE, FASTING 97 MG/DL (83-110); MAGNESIUM LEVEL 1.9 MG/DL (1.8-2.4); POTASSIUM SERUM 3.2 MEQ/L (3.5-5.1); SODIUM LEVEL 137 MEQ/L (136-145); TOTAL PROTEIN 6.3 GM/DL (6.4-8.2)
[2016-12-23] MEDS ORDERED: SODIUM CHLORIDE 0.9% 1000 ML IV ONE (06:45)
[2016-12-23] MEDS ORDERED: POTASSIUM CHLORIDE 10 MEQ SR TABLET PO ONE (06:45)
[2016-12-23] MEDS: SLF 3 ML SYR IV SCH ×3 (06:54→22:22)
[2016-12-23] MEDS: METOPROLOL SUCC *XL* 12.5MG PER 1/2 TAB (TopROL *XL*) PO SCH ×2 (09:16→09:49)
[2016-12-23] MEDS: MULTIVITAMINS CHILDREN'S CHEWABLE TABLET PO SCH (09:16)
[2016-12-23] MEDS: PROPAFENONE 150 MG TAB PO SCH ×2 (09:17→22:21)
[2016-12-23] MEDS: OMEPRAZOLE 20 MG CAP PO SCH (09:17)
[2016-12-23] MEDS: ASPIRIN ENTERIC 325 MG TAB PO SCH (09:21)
[2016-12-23] MEDS: ENOXAPARIN 40 MG/0.4 ML SYRINGE (J1650) SC SCH (09:22)
--- NOTE | 2016-12-23 12:31 | IPNPDOC ---
Date Seen The patient was seen on 12/23/16. Progress Note SUBJECTIVE: Patient is a 86 yo seen at bedside still with some intermittent orthostasis. Presented with bedbugs and under contact isolation. Denies: CP, sob , dizziness, N/V/D, F/C/D. tolerating PO intake, voiding fine, good BMS. OBJECTIVE PHYSICAL EXAMINATION: VITAL SIGNS: Please see below. GENERAL: [NAD, A&OX3] HEENT: [PERRLA, throat clear, neck supple] CARDIOVASCULAR: [RRR]. RESPIRATORY: [CTA bilaterally]. ABDOMINAL: [soft, NT/ND, normoactive bowel sounds] EXTREMITIES: [no edema, no calf tenderness] NEUROLOGICAL: [meter inspector II-XII grossly intact] PSYCHOLOGICAL: [negative] LABORATORY DATA: Please see below. MICROBIOLOGY: Please see below. IMAGING: Echocardiogram: . DVT prophylaxis ordered?: [yes] ASSESSMENT AND PLAN: This is a -year-old [RACE] [GENDER] with . PROBLEMS: 1. Presyncope/syncope from underlying cardiac cause less likely. Symptoms sound consistent with orthostasis possibly related to recent change in diuretic regimen. Hold diuretics another 24hrs. Give additional IVNS Bolus of 500cc's times one. Continue with Orthostatic vital signs. Once normalized will try to reintroduce an appropriate dose of diuretics. 2. MARIXA on CKD. Baseline appears to be 1.1-1.3. Creatinine is at baseline. 3. Hypokalemia: will supplement 4. HTN/CHF. Diastolic. Temporarily holding diuretics. Metoprolol with hold parameters. Monitor. 5. Chronic pain. Continue Cymbalta. 6. Paroxysmal atrial fibrillation. Can downgrade to med/surg remote tele: otherwise appears stable, watch on tele another 24hrs. Serial CIP/troponin: negative. Continue Propafenone. Continue aspirin 325 mg daily. 7. GERD. Continue PPI. 8. Hypothyroid. Continue supplement. Check TSH. 9. OAB/chronic incontinence. UA/UC negative. 10. Hyperlipidemia. Continue statin. DVT prophylaxis lovenox sq. DISPOSITION: Will downgrade to MED/SURG on remote tele and anticipate further work with PT tomorrow and see how his Orthostatics are. VS, I&O, 24H, Fishbone Vital Signs/I&O Vital Signs Label Value Date Time Blood Pressure Assessment 125/62 (83) 12/23/16 0503 Location Right Arm Source Manual Cuff/Auscultation Position Supine Blood Pressure Assessment 125/62 (83) 12/23/16 050 Blood Pressure Assessment 118/58 (78) 12/23/16 050 Position Sitting Blood Pressure Assessment 98/62 (74) 12/23/16502 Location Right Arm Source Manual Cuff/Auscultation Position Standing Bedside Pulse Oximetry 96 % 12/23/16502 Respiratory Rate 18 bpm 12/23/16502 Pulse 76 12/23/16502 Pulse 83 12/23/16502 Pulse 94 12/23/16502 Patient Temperature 98.9 degrees F 12/23/16502 Temperature Source Temporal 12/23/16502 Item Value Date Time Oxygen Delivery Method Room Air 12/23/16502 Laboratory Data 24H LABS Laboratory Tests 2 12/23/16 04:37: Nucleated Red Blood Cells % (auto) 0.0, Anion Gap 6L, Glomerular Filtration Rate > 60.0, Blood Urea Nitrogen 17, Creatinine 0.92, Sodium Level 137, Potassium Level 3.2L, Chloride Level 102, Carbon Dioxide Level 29, Calcium Level 8.2L, Aspartate Amino Transf (AST/SGOT) 21, Alanine Aminotransferase (ALT/ SGPT) 10L, Alkaline Phosphatase 62, Total Bilirubin 0.6, Total Protein 6.3L, Albumin 2.5L, Magnesium Level 1.9, Albumin/Globulin Ratio 0.66L CBC/BMP Laboratory Tests 12/23/16 04:37 Red Blood Count 3.73 L, Mean Corpuscular Volume 88.2, Mean Corpuscular Hemoglobin 29.2, Mean Corpuscular Hemoglobin Concent 33.1, Red Cell Distribution Width 14.2, Calcium Level 8.2 L, Aspartate Amino Transf (AST/SGOT) 21, Alanine Aminotransferase (ALT/SGPT) 10 L, Alkaline Phosphatase 62, Total Bilirubin 0.6, Total Protein 6.3 L, Albumin 2.5 L Microbiology Microbiology 12/20/16 Blood Culture - Preliminary, Resulted No Growth after 48 hours. All Specime... DANTE WATSON DO Dec 23, 2016 12:31
[2016-12-23] MEDS: GLUCOSAMINE SULFATE 1000 MG PO SCH ×2 (17:07→22:21)
[2016-12-23] MEDS: DULoxetine 30 MG CAP (CYMBALTA) PO SCH (22:21)
[2016-12-23] MEDS: NAPROXEN 250 MG TAB PO PRN (22:21)
[2016-12-23] MEDS: SIMVASTATIN 40 MG TAB PO SCH (22:21)
[2016-12-24 01:42] VITALS: BP 112/64
[2016-12-24 05:14] VITALS: BP_SYST 100; BP_SYST 112; BP_SYST 96; BP_DIAS 56; BP_DIAS 62
[2016-12-24 05:20] LABS: MEAN CORPUSCULAR HEMOGLOBIN 29.2 pg (27.0-33.0); MEAN CORPUSCULAR HGB CONC 32.8 g/dl (32.0-36.5); MEAN CORPUSCULAR VOLUME 88.9 fl (80.0-96.0); RED CELL DISTRIBUTION WIDTH 14.2 % (11.5-14.5); WHITE BLOOD COUNT 5.7 10^3/uL (4.0-10.0)
[2016-12-24 05:32] LABS: ALBUMIN 2.6 GM/DL (3.2-5.2); ALKALINE PHOSPHATASE 62 U/L (45-117); ALT/SGPT 15 U/L (12-78); ANION GAP 4 MEQ/L (8-16); AST/SGOT 31 U/L (15-37); BILIRUBIN,TOTAL 0.4 MG/DL (0.2-1.0); BLOOD UREA NITROGEN 16 MG/DL (7-18); CALCIUM LEVEL 8.6 MG/DL (8.8-10.2); CARBON DIOXIDE LEVEL 29 MEQ/L (21-32); CHLORIDE LEVEL 103 MEQ/L (98-107); CREATININE FOR GFR 0.97 MG/DL (0.70-1.30); GLOMERULAR FILTRATION RATE > 60.0 (>35); GLUCOSE, FASTING 127 MG/DL (83-110); MAGNESIUM LEVEL 1.9 MG/DL (1.8-2.4); POTASSIUM SERUM 3.9 MEQ/L (3.5-5.1); SODIUM LEVEL 136 MEQ/L (136-145); TOTAL PROTEIN 6.3 GM/DL (6.4-8.2)
[2016-12-24] MEDS: LEVOTHYROXINE 75MCG TABLET (0.075MG) PO SCH (05:34)
[2016-12-24] MEDS: SLF 3 ML SYR IV SCH ×3 (05:38→21:34)
[2016-12-24 07:56] VITALS: BP 125/64
[2016-12-24] MEDS: MULTIVITAMINS CHILDREN'S CHEWABLE TABLET PO SCH (09:40)
[2016-12-24] MEDS: PROPAFENONE 150 MG TAB PO SCH ×2 (09:41→21:33)
[2016-12-24] MEDS: NAPROXEN 250 MG TAB PO PRN (09:41)
[2016-12-24] MEDS: OMEPRAZOLE 20 MG CAP PO SCH (09:41)
[2016-12-24] MEDS: ASPIRIN ENTERIC 325 MG TAB PO SCH (09:42)
[2016-12-24] MEDS: ENOXAPARIN 40 MG/0.4 ML SYRINGE (J1650) SC SCH (09:42)
[2016-12-24] MEDS: GLUCOSAMINE SULFATE 1000 MG PO SCH ×3 (09:43→21:00)
--- NOTE | 2016-12-24 11:03 | IPN ---
DATE: 12/24/2016 ATTENDING PHYSICIAN: Dr. Humphries I am rounding for the hospitalists today. The patient was admitted with orthostatic hypotension. History of diastolic congestive heart failure (CHF), paroxysmal atrial fibrillation, hypertension. He apparently has orthostatic hypotension that limits his activity. Apparently had an echocardiogram 5 years ago showing an ejection fraction of 65%. I do not see where he has had a more recent echocardiogram. He is followed by Dr. Hogan in the [place] office as an outpatient. Per nursing staff, he has a wide based gait and has a gait disturbance. PHYSICAL EXAMINATION: 112/56 supine, 96/56 standing. Pulse of 78 supine and 96% standing. 93% oxygen saturation. GENERAL APPEARANCE: He is alert and conversant. LUNGS: Clear. HEART: Regular rate and rhythm with a 1/6 systolic ejection murmur. ABDOMEN: Soft, nontender. EXTREMITIES: No peripheral edema. He has a mild tremor of his arms. I did not notice any cogwheeling. IMPRESSION: 1. Presyncope/syncope, probably from orthostatic hypotension. I am going to try some low dose midodrine should not significantly increase the risk of heart failure. 2. Gait disturbance with orthostasis, question neurologic origin. I will put in for a neurology consult. 3. History of congestive heart failure (CHF) with preserved ejection fraction. Repeat echocardiogram has been ordered. 4. Paroxysmal atrial fibrillation. On aspirin and propafenone. 5. Chronic pain syndrome. Continue his Cymbalta. 6. Hypothyroidism. Continue thyroid replacement. Thyroid functions have been ordered. 7. Bed bugs. These have been treated and he is on isolation.
[2016-12-24] MEDS: MIDODRINE 5 MG TAB PO SCH ×2 (11:50→15:46)
[2016-12-24 12:00] VITALS: BP_SYST 106; BP_SYST 112; BP_SYST 116; BP_DIAS 55; BP_DIAS 60; BP_DIAS 61
[2016-12-24 15:47] VITALS: BP 130/61
[2016-12-24 20:00] VITALS: BP_SYST 107; BP_SYST 132; BP_SYST 99; BP_DIAS 55; BP_DIAS 62
[2016-12-24] MEDS: DULoxetine 30 MG CAP (CYMBALTA) PO SCH (21:34)
[2016-12-24] MEDS: SIMVASTATIN 40 MG TAB PO SCH (21:34)
--- NOTE | 2016-12-24 23:16 | ECHO ---
DATE OF PROCEDURE: 12/24/2016 REFERRING PHYSICIAN: Juan Palacio MD INDICATION: Heart murmur, unspecified. HEIGHT: 173 cm WEIGHT: 65.2 kg 2D MEASUREMENTS: Aortic root: 4.3 cm Left atrium: 3.7 cm Ventricular septum: 1.30 cm Posterior wall: 1.30 cm Left ventricle diastole: 3.2 cm LVOT: 2.7 cm Inferior vena cava: 1.0 cm DOPPLER MEASUREMENTS: Aortic valve velocity: 114 cm/s LVOT velocity: 67.7 cm/s LVOT VTI: 18.4 cm Mitral E velocity: 68.1 cm/s Mitral A velocity: 104 cm/s Mitral deceleration time: 256 ms Pulmonary acceleration time: 190 ms MITRAL ANNULAR TISSUE DOPPLER: E prime septal: 10.6 cm/s E prime lateral: 9.7 cm/s DESCRIPTION: Rhythm was sinus. This is a moderately technically difficult echocardiogram. No pericardial effusion. This is a 2D, M-mode, color flow Doppler and pulse wave Doppler examination that included mitral annular tissue Doppler. CONCLUSIONS: 1. Mild concentric left ventricle (LV) geometry. Relatively small LV cavity size. Hyperdynamic LV systolic function. Left ventricular ejection fraction (LVEF) of 75% by visual estimate. No regional wall motion abnormality of the left ventricle. Grade 1 LV diastolic dysfunction (impaired relaxation filling pattern). 2. Mild dilatation of the aortic root at the level of the sinus of Valsalva. 3. Mild aortic valve sclerosis of a three-cuspid aortic valve. 4. Moderate mitral annular calcification. No mitral stenosis or mitral regurgitation. 5. Normal right ventricle size and hyperdynamic RV systolic function.
[2016-12-25] VITALS (7 sets, daily range): BP systolic 110–140; BP diastolic 58–75
[2016-12-25 05:26] LABS: MEAN CORPUSCULAR HEMOGLOBIN 29.2 pg (27.0-33.0); MEAN CORPUSCULAR HGB CONC 32.8 g/dl (32.0-36.5); MEAN CORPUSCULAR VOLUME 88.8 fl (80.0-96.0); RED CELL DISTRIBUTION WIDTH 14.1 % (11.5-14.5); WHITE BLOOD COUNT 5.2 10^3/uL (4.0-10.0)
[2016-12-25] MEDS: LEVOTHYROXINE 75MCG TABLET (0.075MG) PO SCH (05:28)
[2016-12-25] MEDS: SLF 3 ML SYR IV SCH ×3 (05:29→21:48)
[2016-12-25 06:09] LABS: ALBUMIN 2.6 GM/DL (3.2-5.2); ALBUMIN/GLOBULIN RATIO 0.68 (1.00-1.93); ALKALINE PHOSPHATASE 71 U/L (45-117); ALT/SGPT 23 U/L (12-78); ANION GAP 8 MEQ/L (8-16); AST/SGOT 42 U/L (15-37); BILIRUBIN,TOTAL 0.3 MG/DL (0.2-1.0); BLOOD UREA NITROGEN 20 MG/DL (7-18); CALCIUM LEVEL 8.2 MG/DL (8.8-10.2); CARBON DIOXIDE LEVEL 26 MEQ/L (21-32); CHLORIDE LEVEL 104 MEQ/L (98-107); GLOMERULAR FILTRATION RATE > 60.0 (>35); GLUCOSE, FASTING 80 MG/DL (83-110); MAGNESIUM LEVEL 1.9 MG/DL (1.8-2.4); POTASSIUM SERUM 4.3 MEQ/L (3.5-5.1); SODIUM LEVEL 138 MEQ/L (136-145); TOTAL PROTEIN 6.4 GM/DL (6.4-8.2)
--- NOTE | 2016-12-25 07:47 | CR ---
DATE OF CONSULTATION: 12/24/2016 REFERRING PHYSICIAN: Dr. Juan Palacio REASON FOR CONSULTATION: Orthostatic hypotension. HISTORY OF PRESENT ILLNESS: Carlyle Coronado is an 86-year-old man with a history of diastolic congestive heart failure, paroxysmal atrial fibrillation, hypertension, who was admitted at [facility] due to falls. The patient states that he had increased edema in his legs. He was advised to take his Lasix 20 mg alternating with 40 mg daily and Zaroxolyn 2.5 mg daily was added for 3 days. His leg edema was improved with this intervention. He got up on the day of admission to let his dog out at the front door. He was sitting at the side couch. He felt weak and dizzy. He waited for a minute. He walked to the front door when he felt weak and dizzy again and fell to the ground. He states that he remembers falling. He denied loss of consciousness. He had a similar episode yesterday prior to his admission. He uses a walker for ambulation. He denies any headaches, neck or back pain. He denies any seizures. He denies any dysphagia, dysarthria, diplopia or urinary incontinence. He has occasional tremor. He denies any family history of parkinsonism. PAST MEDICAL HISTORY: Paroxysmal atrial fibrillation, hypertension, acid reflux, chronic low back pain, hypothyroidism, diastolic congestive heart failure with ejection fraction 65%, chronic kidney disease, dyslipidemia, cataract surgery, partial thyroidectomy, transurethral resection of prostate (TURP). SOCIAL HISTORY: He is a . He had five children. One son in a motor vehicle accident. He has three daughters. He denies smoking, alcohol or illicit drugs. FAMILY HISTORY: There is no family history of parkinsonism. REVIEW OF SYSTEMS: All systems were reviewed and found to be noncontributory except as mentioned in history of present illness. PHYSICAL EXAMINATION: Blood pressure 116/61, which decreased to 106/55 on standing. Pulse 74, respiratory 18, temperature 97.7. HEART: Regular rate and rhythm. LUNGS: Clear to auscultation. ABDOMEN: Soft, nontender, nondistended. EXTREMITIES: No pedal edema. He has decreased peripheral pulses. No gross musculoskeletal abnormalities. EAR/NOSE/THROAT: Examination is within normal limits. SKIN: No rash on skin. The patient is awake, alert, oriented to place, person and time. Normal speech, comprehension and repetition. Extraocular muscles are intact. No facial weakness. Tongue and uvula are midline. 5/5 strength in all four extremities. Deep tendon flexes are 2+ throughout. No cogwheel rigidity. Plantars are downgoing. He has mildly decreased cold pinprick vibration sensation in his feet. His gait is mildly unsteady. He uses a walker for ambulation. DIAGNOSTIC STUDIES: CT scan of his head showed moderate atrophy and small-vessel ischemic disease of brain. His creatinine was 1.5 and BUN was 29, which decreased to 0.9 and 16, respectively. He was given IV fluids. ASSESSMENT: 1. Multifactorial gait difficulty. 2. Chronic back pain. 3. Possible lumbosacral spinal stenosis and peripheral neuropathy. 4. Orthostatic hypotension likely due to recent changes in his diuretics and increased dose. 5. Shy-Drager syndrome is less likely, as his blood pressure changes are likely related to his medications and he does not have any clear signs of parkinsonism. PLAN: 1. He has been started on midodrine 5 mg by mouth three times a day to improve his orthostatic hypotension. Once his blood pressure and fluid status reaches a stable state, his orthostasis would improve. Walker and a cane as needed. 2. Physical and occupational therapy.
[2016-12-25] MEDS: OMEPRAZOLE 20 MG CAP PO SCH (08:22)
[2016-12-25] MEDS: PROPAFENONE 150 MG TAB PO SCH ×2 (08:22→21:49)
[2016-12-25] MEDS: MIDODRINE 5 MG TAB PO SCH ×2 (08:22→15:49)
[2016-12-25] MEDS: MULTIVITAMINS CHILDREN'S CHEWABLE TABLET PO SCH (08:23)
[2016-12-25] MEDS: GLUCOSAMINE SULFATE 1000 MG PO SCH ×3 (08:23→21:49)
[2016-12-25] MEDS: ASPIRIN ENTERIC 325 MG TAB PO SCH (08:23)
[2016-12-25] MEDS: ENOXAPARIN 40 MG/0.4 ML SYRINGE (J1650) SC SCH (08:23)
--- NOTE | 2016-12-25 11:57 | IPN ---
DATE: 12/25/2016 Carlyle is seen in progressive care unit (PCU). He was seen by Dr. Villarreal yesterday, I appreciate his consultation. He agrees with the use of the midodrine. Did not find him to have anything suggesting Shy-Drager syndrome or other parkinsonian autonomic syndromes. The patient denies any dizziness. He has not been out of bed yet today. No chest pain or shortness of breath. PHYSICAL EXAMINATION: 128/64, pulse of 80, respiratory rate 18, 97% oxygen saturation. He is resting comfortably. No distress. Fine tremor of the hands. No cogwheeling. Normal muscle strength. LABORATORY DATA: CBC unremarkable. BMP unremarkable. IMPRESSION: 1. Orthostatic hypotension. I started midodrine. He is tolerating it well. Blood pressure supine is not elevated. He has not gotten out of bed yet. Hopefully he will be able to go home tomorrow. Get home safety evaluation tomorrow. 2. Gait disturbance. Seen by neurology. Appreciate their input. 3. Congestive heart failure (CHF) with preserved ejection fraction. Repeat echocardiogram is still pending. 4. Paroxysmal atrial fibrillation. On aspirin and propafenone. 5. Hypothyroidism. Stable on current dose of levothyroxine. 6. Hyperlipidemia. Continue his Zocor 40 mg daily. 7. Chronic pain syndrome. Continue Cymbalta, Tylenol and naproxen. Avoid opiates. Echocardiogram is now back. Left ventricular hypertrophy noted. Ejection fraction is 75%, grade 1 diastolic dysfunction noted. Mild aortic sclerosis without stenosis.
[2016-12-25] MEDS: DULoxetine 30 MG CAP (CYMBALTA) PO SCH (21:49)
[2016-12-25] MEDS: SIMVASTATIN 40 MG TAB PO SCH (21:49)
[2016-12-26 06:00] VITALS: BP 140/78
[2016-12-26] MEDS: SLF 3 ML SYR IV SCH ×3 (06:44→20:41)
[2016-12-26] MEDS: LEVOTHYROXINE 75MCG TABLET (0.075MG) PO SCH (06:44)
[2016-12-26 07:46] LABS: MEAN CORPUSCULAR HEMOGLOBIN 29.2 pg (27.0-33.0); MEAN CORPUSCULAR VOLUME 88.7 fl (80.0-96.0); RED CELL DISTRIBUTION WIDTH 13.9 % (11.5-14.5); WHITE BLOOD COUNT 5.2 10^3/uL (4.0-10.0)
[2016-12-26 08:17] VITALS: BP_SYST 108; BP_SYST 123; BP_SYST 145; BP_DIAS 60; BP_DIAS 62; BP_DIAS 82
[2016-12-26 08:27] LABS: ALBUMIN 2.7 GM/DL (3.2-5.2); ALBUMIN/GLOBULIN RATIO 0.68 (1.00-1.93); ALKALINE PHOSPHATASE 81 U/L (45-117); ALT/SGPT 25 U/L (12-78); ANION GAP 5 MEQ/L (8-16); AST/SGOT 38 U/L (15-37); BILIRUBIN,TOTAL 0.4 MG/DL (0.2-1.0); BLOOD UREA NITROGEN 24 MG/DL (7-18); CALCIUM LEVEL 8.8 MG/DL (8.8-10.2); CARBON DIOXIDE LEVEL 30 MEQ/L (21-32); CHLORIDE LEVEL 102 MEQ/L (98-107); GLOMERULAR FILTRATION RATE > 60.0 (>35); GLUCOSE, FASTING 92 MG/DL (83-110); POTASSIUM SERUM 4.5 MEQ/L (3.5-5.1); SODIUM LEVEL 137 MEQ/L (136-145); TOTAL PROTEIN 6.7 GM/DL (6.4-8.2)
[2016-12-26] MEDS: MIDODRINE 5 MG TAB PO SCH ×2 (08:30→15:15)
[2016-12-26] MEDS: ENOXAPARIN 40 MG/0.4 ML SYRINGE (J1650) SC SCH (08:31)
[2016-12-26] MEDS: MULTIVITAMINS CHILDREN'S CHEWABLE TABLET PO SCH (08:31)
[2016-12-26] MEDS: ASPIRIN ENTERIC 325 MG TAB PO SCH (08:31)
[2016-12-26] MEDS: GLUCOSAMINE SULFATE 1000 MG PO SCH ×3 (08:31→20:40)
[2016-12-26] MEDS: PROPAFENONE 150 MG TAB PO SCH ×2 (08:31→20:40)
[2016-12-26] MEDS: OMEPRAZOLE 20 MG CAP PO SCH (08:31)
[2016-12-26 15:00] VITALS: BP 119/62
[2016-12-26 17:00] VITALS: BP_SYST 119; BP_SYST 128; BP_SYST 162; BP_DIAS 67; BP_DIAS 68; BP_DIAS 73
--- NOTE | 2016-12-26 19:35 | IPN ---
DATE: 12/26/2016 The patient is seen and examined. Feeling okay. Tolerating oral. Denies any chest pain, pressure, discomfort, fevers or chills. Denies any lightheadedness. Participating with physical therapy (PT). Temperature 97.6, pulse 74, respirations 20, blood pressure 119/62, orthostatic positive but much improved. LABORATORY DATA: WBC 5.2, hemoglobin and hematocrit 11.9/36.1, platelets 226. Chemistry: Sodium 137, potassium 4.5, chloride 102, bicarbonate 30, BUN 24, creatinine 1.0. PHYSICAL EXAMINATION: GENERAL: The patient is alert, comfortable, in no acute distress. Fine tremors. HEENT: Normocephalic, atraumatic. PULMONARY: Bilaterally clear to auscultation. CARDIAC: Regular rate and rhythm. Normal S1, S2. ABDOMEN: Soft, nontender. Positive bowel sounds. EXTREMITIES: No edema in bilateral lower extremities. ASSESSMENT AND PLAN: This is an 86-year-old male patient with underlying medical history of diastolic heart failure, paroxysmal atrial fibrillation, hypertension, chronic kidney disease, chronic low back pain, hypothyroidism, admitted with syncope and presyncopal episode. 1. Syncope and presyncopal, consistent with orthostasis. The patient is started on midodrine, holding diuretics. Intravenous fluids initially given. The patient currently is still orthostatic but is currently asymptomatic. Continue physical therapy (PT) and occupational therapy (OT). Neurology consulted. 2. Gait disturbance. Seeing a neurologist. Continue physical therapy. 3. Acute on chronic kidney disease. Baseline appears to be 1.1 to 1.3. Monitor BUN and creatinine. IV fluids initially given. 4. Hypokalemia. Supplemented. 5. Hypertension with diastolic congestive heart failure (CHF). Holding beta blockers. Continue aspirin. We will consider restarting Lasix once the patient's blood pressure is better. Holding Lasix given lower extremity edema. 6. Chronic pain. Continue current medication. 7. Paroxysmal atrial fibrillation. Currently in sinus. Holding beta blockers given orthostatic hypotension. We will restart as tolerated. Continue aspirin. 8. Gastroesophageal reflux disease (GERD). Continue proton pump inhibitor. 9. Hypothyroidism. Continue current medications. TSH appreciated. 10. Overactive bladder, chronic incontinence. Outpatient followup. 11. Dyslipidemia. Continue statin. 12. Deep vein thrombosis (DVT) prophylaxis. Lovenox subcutaneously. DISPOSITION: Pending physical therapy (PT) and occupational therapy (OT). Possible short-term rehabilitation.
[2016-12-26] MEDS: SIMVASTATIN 40 MG TAB PO SCH (20:40)
[2016-12-26] MEDS: DULoxetine 30 MG CAP (CYMBALTA) PO SCH (20:40)
[2016-12-26 22:00] VITALS: BP 155/73
[2016-12-27 06:00] VITALS: BP_SYST 139; BP_SYST 156; BP_DIAS 69; BP_DIAS 80
[2016-12-27] MEDS: LEVOTHYROXINE 75MCG TABLET (0.075MG) PO SCH (06:01)
[2016-12-27] MEDS: SLF 3 ML SYR IV SCH ×3 (06:02→22:09)
[2016-12-27 06:43] LABS: MEAN CORPUSCULAR HEMOGLOBIN 28.9 pg (27.0-33.0); MEAN CORPUSCULAR HGB CONC 33.1 g/dl (32.0-36.5); MEAN CORPUSCULAR VOLUME 87.3 fl (80.0-96.0); RED CELL DISTRIBUTION WIDTH 13.8 % (11.5-14.5); WHITE BLOOD COUNT 5.7 10^3/uL (4.0-10.0)
[2016-12-27 07:06] LABS: ALBUMIN 2.7 GM/DL (3.2-5.2); ALBUMIN/GLOBULIN RATIO 0.71 (1.00-1.93); ALKALINE PHOSPHATASE 83 U/L (45-117); ALT/SGPT 29 U/L (12-78); ANION GAP 7 MEQ/L (8-16); AST/SGOT 33 U/L (15-37); BILIRUBIN,TOTAL 0.3 MG/DL (0.2-1.0); BLOOD UREA NITROGEN 25 MG/DL (7-18); CALCIUM LEVEL 8.8 MG/DL (8.8-10.2); CARBON DIOXIDE LEVEL 26 MEQ/L (21-32); CHLORIDE LEVEL 104 MEQ/L (98-107); CREATININE FOR GFR 0.99 MG/DL (0.70-1.30); GLOMERULAR FILTRATION RATE > 60.0 (>35); GLUCOSE, FASTING 85 MG/DL (83-110); MAGNESIUM LEVEL 1.9 MG/DL (1.8-2.4); POTASSIUM SERUM 4.2 MEQ/L (3.5-5.1); SODIUM LEVEL 137 MEQ/L (136-145); TOTAL PROTEIN 6.5 GM/DL (6.4-8.2)
[2016-12-27] MEDS: MULTIVITAMINS CHILDREN'S CHEWABLE TABLET PO SCH (08:28)
[2016-12-27] MEDS: ASPIRIN ENTERIC 325 MG TAB PO SCH (08:28)
[2016-12-27] MEDS: MIDODRINE 5 MG TAB PO SCH ×2 (08:28→16:59)
[2016-12-27] MEDS: PROPAFENONE 150 MG TAB PO SCH ×2 (08:29→22:08)
[2016-12-27] MEDS: ENOXAPARIN 40 MG/0.4 ML SYRINGE (J1650) SC SCH (08:29)
[2016-12-27] MEDS: OMEPRAZOLE 20 MG CAP PO SCH (08:29)
[2016-12-27] MEDS: GLUCOSAMINE SULFATE 1000 MG PO SCH ×3 (08:29→22:08)
[2016-12-27 14:00] VITALS: BP 136/74
[2016-12-27 14:30] VITALS: BP_SYST 110; BP_SYST 126; BP_SYST 150; BP_DIAS 68; BP_DIAS 70
--- NOTE | 2016-12-27 15:25 | IPN ---
DATE: 12/27/2016 Patient seen and examined. No acute events overnight. Denies any chest pain, pressure, or discomfort. No further episodes of syncope. Currently feels comfortable and wanted to go home as soon as possible. Denies any chest pain, shortness of breath, fevers, or chills. VITAL SIGNS: Temperature 97.8, pulse 85, respirations 18, blood pressure 136/74, pulse oximetry 99% on room air. LABORATORY DATA: WBC 5.7, hemoglobin and hematocrit 11.8/35.7, platelets 240. Chemistry: Sodium 137, potassium 4.2, chloride 104, bicarbonate 26, BUN 25, creatinine 0.99. PHYSICAL EXAMINATION: GENERAL: Patient alert, comfortable in no acute distress. Fine tremors. HEENT: Normocephalic, atraumatic. PULMONARY: Bilaterally clear to auscultation. CARDIAC: Regular rate and rhythm. Normal S1, S2. ABDOMEN: Soft and nontender. Positive bowel sounds. EXTREMITIES: No edema, bilateral lower extremities. ASSESSMENT AND PLAN: This is an 86-year-old male patient with underlying medical history of diastolic heart failure, paroxysmal atrial fibrillation, hypertension, chronic kidney disease (CKD), chronic low back pain, hypothyroidism, admitted with syncope and presyncopal episode. 1. Syncope and presyncopal episode consistent with orthostasis. Patient started on midodrine. Holding diuretics. Will reassess fluid status before restarting diuretics. Initially intravenous fluids have been given. Patient currently still orthostatic but is asymptomatic. Continue physical therapy (PT)/occupational therapy (OT). Neurology consulted. 2. [place] disturbances. Seen neurology. Continue Physical therapy. 3. Acute on chronic kidney disease. Baseline appears to be 1.12-1.3. Monitor BUN and creatinine. Intravenous (IV) fluids initially given. 4. Hypokalemia. Supplemented. 5. Hypertension with diastolic congestive heart failure. Holding beta blockers. Continue aspirin. Will consider restarting Lasix once the patient's blood pressure improves. 6. Chronic pain. Continue current medications. 7. Paroxysmal atrial fibrillation. Currently in sinus. Holding beta blockers. Will restart once patient is improved. Continue aspirin. 8. Gastroesophageal reflux disease (GERD). Continue proton pump inhibitor (PPI). 9. Hypothyroidism. Continue current medication. Thyroid-stimulating hormone (TSH) appreciated. 10. Overactive bladder and chronic incontinence. Outpatient followup. 11. Dyslipidemia. Continue statin. 12. Deep vein thrombosis (DVT) prophylaxis. Lovenox subcutaneous. DISPOSITION: Pending PT/OT. Possible short-term rehabilitation.
[2016-12-27] MEDS: METOPROLOL SUCC *XL* 12.5MG PER 1/2 TAB (TopROL *XL*) PO SCH (16:59)
[2016-12-27 22:00] VITALS: BP_SYST 127; BP_SYST 128; BP_SYST 137; BP_SYST 148; BP_DIAS 71; BP_DIAS 73; BP_DIAS 74; BP_DIAS 75
[2016-12-27] MEDS: DULoxetine 30 MG CAP (CYMBALTA) PO SCH (22:08)
[2016-12-27] MEDS: SIMVASTATIN 40 MG TAB PO SCH (22:08)
[2016-12-28] MEDS: LEVOTHYROXINE 75MCG TABLET (0.075MG) PO SCH (05:44)
[2016-12-28] MEDS: SLF 3 ML SYR IV SCH ×3 (05:44→20:09)
[2016-12-28 06:00] VITALS: BP 140/77
[2016-12-28 07:22] LABS: MEAN CORPUSCULAR HEMOGLOBIN 29.2 pg (27.0-33.0); MEAN CORPUSCULAR HGB CONC 32.7 g/dl (32.0-36.5); MEAN CORPUSCULAR VOLUME 89.4 fl (80.0-96.0); PLATELET COUNT, AUTOMATED 240 10^3/uL (150-450); RED CELL DISTRIBUTION WIDTH 13.9 % (11.5-14.5); WHITE BLOOD COUNT 5.6 10^3/uL (4.0-10.0)
[2016-12-28 07:50] LABS: ANION GAP 6 MEQ/L (8-16); BLOOD UREA NITROGEN 26 MG/DL (7-18); CALCIUM LEVEL 8.5 MG/DL (8.8-10.2); CARBON DIOXIDE LEVEL 28 MEQ/L (21-32); CHLORIDE LEVEL 104 MEQ/L (98-107); CREATININE FOR GFR 1.04 MG/DL (0.70-1.30); GLOMERULAR FILTRATION RATE > 60.0 (>35); GLUCOSE, FASTING 127 MG/DL (83-110); MAGNESIUM LEVEL 2.3 MG/DL (1.8-2.4); POTASSIUM SERUM 4.1 MEQ/L (3.5-5.1); SODIUM LEVEL 138 MEQ/L (136-145)
[2016-12-28] MEDS: PROPAFENONE 150 MG TAB PO SCH ×2 (09:10→20:09)
[2016-12-28] MEDS: ASPIRIN ENTERIC 325 MG TAB PO SCH (09:10)
[2016-12-28] MEDS: MIDODRINE 5 MG TAB PO SCH ×2 (09:10→16:42)
[2016-12-28] MEDS: OMEPRAZOLE 20 MG CAP PO SCH (09:10)
[2016-12-28] MEDS: ENOXAPARIN 40 MG/0.4 ML SYRINGE (J1650) SC SCH (09:10)
[2016-12-28] MEDS: MULTIVITAMINS CHILDREN'S CHEWABLE TABLET PO SCH (09:10)
[2016-12-28] MEDS: METOPROLOL SUCC *XL* 12.5MG PER 1/2 TAB (TopROL *XL*) PO SCH (09:11)
[2016-12-28] MEDS: GLUCOSAMINE SULFATE 1000 MG PO SCH ×3 (09:12→20:09)
[2016-12-28 14:00] VITALS: BP 141/74
--- NOTE | 2016-12-28 16:12 | IPN ---
DATE: 12/28/2016 Patient seen and examined. No acute events overnight. Currently doing much better on physical therapy. Denies any chest pain, pressure or discomfort, shortness of breath, fevers, or chills. VITAL SIGNS: Temperature 98.8, pulse 74, respirations 20, blood pressure 141/74, pulse oximetry 98% on room air. LABORATORY DATA: WBC 5.6, hemoglobin and hematocrit 11.9/36.4, platelets 240. Chemistry: Sodium 138, potassium 4.1, chloride 104, bicarbonate 28, BUN 26, creatinine 1.04. PHYSICAL EXAMINATION: GENERAL: Patient alert, comfortable, in no acute distress. HEENT: Normocephalic, atraumatic. PULMONARY: Bilaterally clear to auscultation. CARDIAC: Regular rate and rhythm. Normal S1, S2. ABDOMEN: Soft and nontender. Positive bowel sounds. EXTREMITIES: Trace edema bilateral lower extremities. ASSESSMENT AND PLAN: This is an 86-year-old male patient with underlying medical history of diastolic heart failure, paroxysmal atrial fibrillation, hypertension, chronic kidney disease (CKD), chronic low back pain, hypothyroidism, admitted with syncope and presyncopal episode. 1. Syncope and presyncopal episode consistent with orthostasis. Patient started on midodrine. Holding diuretics. Will consider restarting diuretics tomorrow if blood pressure remains decent. Initially given IV fluids. Physical therapy/occupational therapy (PT/OT). Patient remains orthostatic but asymptomatic. Neurology consulted. 2. [place] disturbances. Sees neurology. Physical therapy. 3. Acute on chronic kidney disease. Baseline creatinine between 1.12 and 1.3. Currently at baseline. Continue to followup BUN and creatinine. IV fluids initially given. 4. Hypokalemia. Supplemented. 5. Hypertension with diastolic congestive heart failure. Restarting beta blockers, aspirin. Consider restarting Lasix. 6. Chronic pain. Continue current medications. 7. Paroxysmal atrial fibrillation. Restarting beta blockers. Continue aspirin. 8. Gastroesophageal reflux disease (GERD). Continue proton pump inhibitor (PPI). 9. Hypothyroidism. Continue current medication. Thyroid-stimulating hormone (TSH) appreciated. 10. Overactive bladder and chronic incontinence. Outpatient followup. 11. Dyslipidemia. Continue statin. 12. Deep venous thrombosis (DVT) prophylaxis. Lovenox subcutaneous. DISPOSITION: Pending physical therapy/occupational therapy (PT/OT).
[2016-12-28] MEDS: DULoxetine 30 MG CAP (CYMBALTA) PO SCH (20:09)
[2016-12-28] MEDS: SIMVASTATIN 40 MG TAB PO SCH (20:09)
[2016-12-28 22:00] VITALS: BP 123/59
[2016-12-29] MEDS: LEVOTHYROXINE 75MCG TABLET (0.075MG) PO SCH (05:26)
[2016-12-29] MEDS: SLF 3 ML SYR IV SCH ×3 (05:27→22:44)
[2016-12-29 06:00] VITALS: BP_SYST 118; BP_SYST 122; BP_SYST 165; BP_DIAS 59; BP_DIAS 65; BP_DIAS 79
[2016-12-29 06:46] LABS: MEAN CORPUSCULAR HEMOGLOBIN 28.8 pg (27.0-33.0); MEAN CORPUSCULAR HGB CONC 32.2 g/dl (32.0-36.5); MEAN CORPUSCULAR VOLUME 89.5 fl (80.0-96.0); PLATELET COUNT, AUTOMATED 267 10^3/uL (150-450); RED CELL DISTRIBUTION WIDTH 14.2 % (11.5-14.5); WHITE BLOOD COUNT 5.6 10^3/uL (4.0-10.0)
[2016-12-29 07:18] LABS: ANION GAP 6 MEQ/L (8-16); BLOOD UREA NITROGEN 26 MG/DL (7-18); CALCIUM LEVEL 8.7 MG/DL (8.8-10.2); CARBON DIOXIDE LEVEL 29 MEQ/L (21-32); CHLORIDE LEVEL 104 MEQ/L (98-107); CREATININE FOR GFR 0.93 MG/DL (0.70-1.30); GLOMERULAR FILTRATION RATE > 60.0 (>35); GLUCOSE, FASTING 81 MG/DL (83-110); MAGNESIUM LEVEL 2.3 MG/DL (1.8-2.4); POTASSIUM SERUM 4.4 MEQ/L (3.5-5.1); SODIUM LEVEL 139 MEQ/L (136-145)
[2016-12-29] MEDS: MIDODRINE 5 MG TAB PO SCH ×2 (08:43→16:13)
[2016-12-29] MEDS: METOPROLOL SUCC *XL* 12.5MG PER 1/2 TAB (TopROL *XL*) PO SCH (08:43)
[2016-12-29] MEDS: MULTIVITAMINS CHILDREN'S CHEWABLE TABLET PO SCH (08:43)
[2016-12-29] MEDS: PROPAFENONE 150 MG TAB PO SCH ×2 (08:43→20:32)
[2016-12-29] MEDS: ENOXAPARIN 40 MG/0.4 ML SYRINGE (J1650) SC SCH (08:44)
[2016-12-29] MEDS: ASPIRIN ENTERIC 325 MG TAB PO SCH (08:44)
[2016-12-29] MEDS: GLUCOSAMINE SULFATE 1000 MG PO SCH ×3 (08:44→20:32)
[2016-12-29] MEDS: OMEPRAZOLE 20 MG CAP PO SCH (08:44)
[2016-12-29] MEDS: FUROSEMIDE 20 MG TAB PO SCH (11:59)
--- NOTE | 2016-12-29 12:50 | IPN ---
DATE OF SERVICE: 12/29/2016 Patient seen and examined. Feeling much better. Denies any chest pain, pressure, or discomfort. Participating with physical therapy. Denies any trouble breathing. VITAL SIGNS: Temperature 97.8, pulse 62, respirations 17, blood pressure 122/65, pulse oximetry 97% on room air. LABORATORY: WBC 5.6, hemoglobin and hematocrit (H and H) 11.3/35.1, platelets 267. Chemistry: Sodium 137, potassium 4.4, chloride 104, bicarbonate 29, BUN 26, creatinine 0.93. PHYSICAL EXAM: GENERAL: Patient alert, oriented times three, in no acute distress. HEENT: Normocephalic, atraumatic. PULMONARY: Bilaterally clear to auscultation. No wheeze, rales, rhonchi. CARDIAC: Regular rate, rhythm. Normal S1, S2. ABDOMEN: Soft, nontender. Positive bowel sounds. EXTREMITIES: Trace edema bilateral lower extremities. ASSESSMENT AND PLAN: This is an 86-year-old male patient with underlying medical history of diastolic heart failure, paroxysmal atrial fibrillation, hypertension, chronic kidney disease (CKD), chronic low back pain, hypothyroidism, admitted with syncope and presyncopal episode. 1. Syncope and presyncopal episode consistent with orthostasis. Patient started on midodrine. Will restart diuretics given patient's vital signs remain relatively stable. Will restart patient's diuretic at reduce dose. Neurology initially consulted. Physical therapy (PT)/occupational therapy (OT). Initially patient was given intravenous (IV) fluids. Currently, patient still orthostatic was asymptomatic. Blood pressure was much improved. 2. [place] disturbances. Patient follows with neurology, physical therapy. 3. Acute on chronic kidney disease. Baseline creatinine between 1.12 and 1.3. Currently at baseline. Continue to follow BUN/creatinine. On admission, patient was given IV fluids. Currently, patient is euvolemic. Restarting home diuretics. 4. Hypokalemia. Supplemented. 5. Hypertension with diastolic congestive heart failure. Beta philip, aspirin. Restarting Lasix at reduced dose. 6. Chronic pain. Continue current medication. 7. Paroxysmal atrial fibrillation. Continue aspirin, beta philip. 8. Gastroesophageal reflux disease (GERD). Continue proton pump inhibitor (PPI). 9. Hypothyroidism. Thyroid-stimulating hormone (TSH) appreciated. Continue current medication. 10. Overactive bladder and chronic incontinence. Outpatient followup. 11. Dyslipidemia. Continue statin. 12. Deep venous thrombosis (DVT) prophylaxis. Lovenox subcutaneous. DISPOSITION PLANNING: Pending PT/OT.
[2016-12-29 14:00] VITALS: BP 154/83
[2016-12-29 18:45] VITALS: BP_SYST 162; BP_SYST 165; BP_SYST 170; BP_DIAS 71; BP_DIAS 72; BP_DIAS 83
[2016-12-29] MEDS: DULoxetine 30 MG CAP (CYMBALTA) PO SCH (20:32)
[2016-12-29] MEDS: SIMVASTATIN 40 MG TAB PO SCH (20:32)
[2016-12-29 22:00] VITALS: BP_SYST 102; BP_SYST 117; BP_SYST 122; BP_SYST 90; BP_DIAS 51; BP_DIAS 56; BP_DIAS 58; BP_DIAS 59
[2016-12-30] MEDS: LEVOTHYROXINE 75MCG TABLET (0.075MG) PO SCH (05:58)
[2016-12-30 06:00] VITALS: BP_SYST 125; BP_SYST 127; BP_SYST 135; BP_SYST 87; BP_DIAS 50; BP_DIAS 58; BP_DIAS 61; BP_DIAS 65
[2016-12-30 06:11] LABS: MEAN CORPUSCULAR HEMOGLOBIN 28.7 pg (27.0-33.0); MEAN CORPUSCULAR HGB CONC 32.3 g/dl (32.0-36.5); MEAN CORPUSCULAR VOLUME 88.9 fl (80.0-96.0); PLATELET COUNT, AUTOMATED 290 10^3/uL (150-450); RED CELL DISTRIBUTION WIDTH 14.1 % (11.5-14.5); WHITE BLOOD COUNT 5.7 10^3/uL (4.0-10.0)
[2016-12-30 06:36] LABS: ANION GAP 6 MEQ/L (8-16); BLOOD UREA NITROGEN 25 MG/DL (7-18); CALCIUM LEVEL 8.8 MG/DL (8.8-10.2); CARBON DIOXIDE LEVEL 27 MEQ/L (21-32); CHLORIDE LEVEL 105 MEQ/L (98-107); CREATININE FOR GFR 1.08 MG/DL (0.70-1.30); GLOMERULAR FILTRATION RATE > 60.0 (>35); GLUCOSE, FASTING 90 MG/DL (83-110); MAGNESIUM LEVEL 2.3 MG/DL (1.8-2.4); POTASSIUM SERUM 4.4 MEQ/L (3.5-5.1); SODIUM LEVEL 138 MEQ/L (136-145)
[2016-12-30] MEDS: SLF 3 ML SYR IV SCH ×3 (07:03→21:57)
[2016-12-30] MEDS: MULTIVITAMINS CHILDREN'S CHEWABLE TABLET PO SCH (09:11)
[2016-12-30] MEDS: GLUCOSAMINE SULFATE 1000 MG PO SCH ×3 (09:12→21:56)
[2016-12-30] MEDS: ASPIRIN ENTERIC 325 MG TAB PO SCH (09:12)
[2016-12-30] MEDS: FUROSEMIDE 20 MG TAB PO SCH (09:12)
[2016-12-30] MEDS: PROPAFENONE 150 MG TAB PO SCH ×2 (09:12→21:56)
[2016-12-30] MEDS: METOPROLOL SUCC *XL* 12.5MG PER 1/2 TAB (TopROL *XL*) PO SCH (09:12)
[2016-12-30] MEDS: MIDODRINE 5 MG TAB PO SCH ×2 (09:12→17:45)
[2016-12-30] MEDS: OMEPRAZOLE 20 MG CAP PO SCH (09:12)
[2016-12-30] MEDS: ENOXAPARIN 40 MG/0.4 ML SYRINGE (J1650) SC SCH (09:13)
[2016-12-30 14:00] VITALS: BP 128/68
--- NOTE | 2016-12-30 17:05 | IPNPDOC ---
Text Note Date of Service The patient was seen on 12/30/16. NOTE Subjective: Patient is a 86 year old male with a PMHx of Diastolic CHF, Paroxysmal A. fib, HTN, CKD3, Chronic low back pain and Hypothyroidism who was admitted for syncope / pre-syncope - likely 2/2 orthostatic hypotension. Patient was seen and examined at the bedside. Currently he denies any problems. Denies chest pain, shortness of breath or palpitations. Objective: Vitals (See below) General: Lying in bed, no acute distress, comfortable, AAOx3 HEENT: NC, AT CVS: RRR, +S1S2 Lungs: Fair air entry b/l, -w/r/r Abdomen: Soft, ND, NT Extremities: - Edema, - Calf tenderness Assessment and plan: Presyncope - likely 2/2 orthostatic hypotension - Was recently on aggressive diuresis; has been discontinued - Clinically is felling better - s/p IV fluids - BP was initially better controlled; but positive orthostatics were again noted after restarting beta blockers - Increased dose of Midodrine to 5mg TID and changed Metoprolol succinate to evening dose - c/w Physical therapy until cleared for discharged s/p MARIXA on CKD - Cr now at baseline of 1.1-1.3 Normocytic anemia - Hg remains stable s/p Hypokalemia HTN - see above Chronic pain - c/w Duloxetine and Naproxen DLP - c/w Simvastatin Paroxysmal Atrial fibrillation - c/w Metoprolol succinate - c/w ASA 325 Hypothyroidism - c/w Levothyroxine Overactive bladder / Chronic incontinence - outpatient follow up GERD - c/w PPI DVT prophylaxis - c/w Lovenox VS,Fishbone, I+O VS, Fishbone, I+O Laboratory Tests 12/30/16 05:49 Red Blood Count 4.04 L, Mean Corpuscular Volume 88.9, Mean Corpuscular Hemoglobin 28.7, Mean Corpuscular Hemoglobin Concent 32.3, Red Cell Distribution Width 14.1, Calcium Level 8.8 Vital Signs Date Time Temp Pulse Resp B/P (MAP) Pulse Ox O2 Delivery O2 Flow Rate FiO2 12/30/16 14:00 98.4 81 17 128/68 (88) 95 Room Air I&O- Last 24 Hours up to 6 AM 12/31/16 06:00 Intake Total 720 ml Balance 720 ml BRUNA HENRY MD Dec 30, 2016 17:05
[2016-12-30] MEDS: SIMVASTATIN 40 MG TAB PO SCH (21:56)
[2016-12-30] MEDS: DULoxetine 30 MG CAP (CYMBALTA) PO SCH (21:56)
[2016-12-30 22:00] VITALS: BP 123/65
[2016-12-31 00:20] VITALS: BP_SYST 128; BP_SYST 136; BP_SYST 155; BP_DIAS 70; BP_DIAS 77; BP_DIAS 80
[2016-12-31] MEDS: LEVOTHYROXINE 75MCG TABLET (0.075MG) PO SCH (05:31)
[2016-12-31] MEDS: SLF 3 ML SYR IV SCH ×2 (05:37→14:00)
[2016-12-31 05:57] VITALS: BP_SYST 128; BP_SYST 136; BP_SYST 155; BP_DIAS 70; BP_DIAS 77; BP_DIAS 80
[2016-12-31 05:58] LABS: MEAN CORPUSCULAR HEMOGLOBIN 28.7 pg (27.0-33.0); MEAN CORPUSCULAR HGB CONC 32.4 g/dl (32.0-36.5); MEAN CORPUSCULAR VOLUME 88.6 fl (80.0-96.0); PLATELET COUNT, AUTOMATED 315 10^3/uL (150-450); RED CELL DISTRIBUTION WIDTH 14.1 % (11.5-14.5); WHITE BLOOD COUNT 5.9 10^3/uL (4.0-10.0)
[2016-12-31 06:14] LABS: ANION GAP 6 MEQ/L (8-16); BLOOD UREA NITROGEN 27 MG/DL (7-18); CALCIUM LEVEL 8.8 MG/DL (8.8-10.2); CARBON DIOXIDE LEVEL 28 MEQ/L (21-32); CHLORIDE LEVEL 104 MEQ/L (98-107); CREATININE FOR GFR 1.05 MG/DL (0.70-1.30); GLOMERULAR FILTRATION RATE > 60.0 (>35); GLUCOSE, FASTING 92 MG/DL (83-110); MAGNESIUM LEVEL 2.3 MG/DL (1.8-2.4); POTASSIUM SERUM 4.4 MEQ/L (3.5-5.1); SODIUM LEVEL 138 MEQ/L (136-145)
[2016-12-31] MEDS: MIDODRINE 5 MG TAB PO SCH ×3 (06:21→18:26)
[2016-12-31] MEDS: OMEPRAZOLE 20 MG CAP PO SCH (08:43)
[2016-12-31] MEDS: MULTIVITAMINS CHILDREN'S CHEWABLE TABLET PO SCH (08:44)
[2016-12-31] MEDS: ASPIRIN ENTERIC 325 MG TAB PO SCH (08:44)
[2016-12-31] MEDS: FUROSEMIDE 20 MG TAB PO SCH (08:44)
[2016-12-31] MEDS: PROPAFENONE 150 MG TAB PO SCH ×2 (08:44→20:01)
[2016-12-31] MEDS: ENOXAPARIN 40 MG/0.4 ML SYRINGE (J1650) SC SCH (08:45)
[2016-12-31] MEDS: GLUCOSAMINE SULFATE 1000 MG PO SCH ×3 (08:45→20:03)
[2016-12-31] MEDS ORDERED: METOPROLOL SUCC *XL* 12.5MG PER 1/2 TAB (TopROL *XL*) PO SCH ×2 (09:00→21:00)
--- NOTE | 2016-12-31 13:22 | IPNPDOC ---
Text Note Date of Service The patient was seen on 12/31/16. NOTE Subjective: Patient is a 86 year old male with a PMHx of Diastolic CHF, Paroxysmal A. fib, HTN, CKD3, Chronic low back pain and Hypothyroidism who was admitted for syncope / pre-syncope - likely 2/2 orthostatic hypotension. Patient was seen and examined at the bedside. He denies any chest pain, shortness of breath, palpitations or dizziness. His BP has been better controlled this morning. Objective: Vitals (See below) General: Lying in bed, no acute distress, comfortable, AAOx3 HEENT: NC, AT CVS: RRR, +S1S2 Lungs: Fair air entry b/l, -w/r/r Abdomen: Soft, ND, NT Extremities: - Edema, - Calf tenderness Assessment and plan: Presyncope - likely 2/2 orthostatic hypotension - 2/2 aggressive diuresis - Diuretics have been reduced since admission, clinically he is felling better - s/p IV fluids - BP appears to be better optimized at adjusted Midodrine and evening Metoprolol - c/w Midodrine 5mg TID and Metoprolol succinate in evenings - c/w Physical therapy until cleared for discharged s/p MARIXA on CKD - Cr now at baseline of 1.1-1.3 Normocytic anemia - Hg remains stable s/p Hypokalemia HTN - see above Chronic pain - c/w Duloxetine and Naproxen DLP - c/w Simvastatin Paroxysmal Atrial fibrillation - c/w Metoprolol succinate - c/w ASA 325 Hypothyroidism - c/w Levothyroxine Overactive bladder / Chronic incontinence - outpatient follow up GERD - c/w PPI DVT prophylaxis - c/w Lovenox VS,Fishbone, I+O VS, Fishbone, I+O Laboratory Tests 12/31/16 05:47 Red Blood Count 4.22 L, Mean Corpuscular Volume 88.6, Mean Corpuscular Hemoglobin 28.7, Mean Corpuscular Hemoglobin Concent 32.4, Red Cell Distribution Width 14.1, Calcium Level 8.8 Vital Signs Date Time Temp Pulse Resp B/P (MAP) Pulse Ox O2 Delivery O2 Flow Rate FiO2 12/31/16 09:00 Room Air 12/31/16 00:20 56 136/77 (96) 72 128/70 (89) 75 155/80 (105) 10/22/17 22:00 97.7 17 94 I&O- Last 24 Hours up to 6 AM 01/01/17 06:00 Intake Total 600 ml Balance 600 ml BRUNA HENRY MD Dec 31, 2016 13:22
[2016-12-31 14:00] VITALS: BP 149/70
[2016-12-31 14:09] VITALS: BP_SYST 140; BP_SYST 144; BP_SYST 149; BP_DIAS 67; BP_DIAS 69; BP_DIAS 70
[2016-12-31] MEDS: DULoxetine 30 MG CAP (CYMBALTA) PO SCH (20:02)
[2016-12-31] MEDS: SIMVASTATIN 40 MG TAB PO SCH (20:02)
[2016-12-31 22:00] VITALS: BP 140/76
[2017-01-01] MEDS: LEVOTHYROXINE 75MCG TABLET (0.075MG) PO SCH (05:38)
[2017-01-01 06:04] VITALS: BP_SYST 142; BP_SYST 150; BP_SYST 160; BP_DIAS 78; BP_DIAS 86; BP_DIAS 90
[2017-01-01 06:34] LABS: MEAN CORPUSCULAR HEMOGLOBIN 29.3 pg (27.0-33.0); MEAN CORPUSCULAR HGB CONC 33.1 g/dl (32.0-36.5); MEAN CORPUSCULAR VOLUME 88.7 fl (80.0-96.0); PLATELET COUNT, AUTOMATED 306 10^3/uL (150-450)
[2017-01-01 06:51] LABS: ANION GAP 8 MEQ/L (8-16); BLOOD UREA NITROGEN 28 MG/DL (7-18); CARBON DIOXIDE LEVEL 27 MEQ/L (21-32); CHLORIDE LEVEL 103 MEQ/L (98-107); CREATININE FOR GFR 1.05 MG/DL (0.70-1.30); GLOMERULAR FILTRATION RATE > 60.0 (>35); GLUCOSE, FASTING 89 MG/DL (83-110); MAGNESIUM LEVEL 2.4 MG/DL (1.8-2.4); POTASSIUM SERUM 4.5 MEQ/L (3.5-5.1); SODIUM LEVEL 138 MEQ/L (136-145)
[2017-01-01] MEDS: GLUCOSAMINE SULFATE 1000 MG PO SCH ×2 (08:25→16:00)
[2017-01-01] MEDS: PROPAFENONE 150 MG TAB PO SCH (08:26)
[2017-01-01] MEDS: MULTIVITAMINS CHILDREN'S CHEWABLE TABLET PO SCH (08:26)
[2017-01-01] MEDS: ASPIRIN ENTERIC 325 MG TAB PO SCH (08:26)
[2017-01-01 08:27] VITALS: BP 160/90
[2017-01-01] MEDS: FUROSEMIDE 20 MG TAB PO SCH (08:27)
[2017-01-01] MEDS: OMEPRAZOLE 20 MG CAP PO SCH (08:27)
[2017-01-01] MEDS: MIDODRINE 5 MG TAB PO SCH ×2 (08:27→13:08)
[2017-01-01] MEDS: ENOXAPARIN 40 MG/0.4 ML SYRINGE (J1650) SC SCH (08:28)
[2017-01-01] MEDS ORDERED: LISINOPRIL 5 MG TAB PO SCH (09:00)
[2017-01-01] MEDS ORDERED: METO1TAB32 PO (10:59)
[2017-01-01] MEDS ORDERED: LISI-542 PO (10:59)
[2017-01-01] MEDS ORDERED: FURO20TA2 PO (10:59)
[2017-01-01] MEDS ORDERED: MIDO5TA PO (10:59)
[2017-01-01 11:03] VITALS: BP 111/57
[2017-01-01 14:00] VITALS: BP 134/61
--- NOTE | 2017-01-01 17:14 | DSES ---
DATE OF ADMISSION: 12/20/2016 DATE OF DISCHARGE: 12/31/2016 ATTENDING PHYSICIANS: Dr. Blanka Christianson, Dr. Juanito Humphries, Dr. Juan Palacio, Dr. Rae Wooten. PRIMARY CARE PROVIDER: Unknown. CONSULTING PHYSICIAN: Dr. Villarreal CONDITION ON DISCHARGE: Stable. FINAL DIAGNOSIS: Syncope secondary to orthostatic hypotension. PROCEDURES: None. HISTORY OF PRESENT ILLNESS: The patient is an 86-year-old male with a past medical history of diastolic congestive heart failure (CHF), paroxysmal atrial fibrillation, hypertension, chronic kidney disease (CKD), stage III, chronic lower back pain, and hypothyroidism who was admitted for syncope/presyncope likely secondary to orthostatic hypotension. HOSPITAL COURSE: 1. Presyncope, likely secondary to orthostatic hypotension, secondary to aggressive diuresis. Diuretics have been reduced since admission. Clinically, he is feeling better status post IV fluid hydration. Blood pressure appears to be better optimized at adjusted dose of midodrine and evening dose of metoprolol. Lisinopril was added for better blood pressure control. The patient has remained asymptomatic and has cleared physical therapy. 2. Status post acute kidney injury on chronic kidney disease (CKD). Creatinine is now at the baseline. 3. Anemia. Hemoglobin remained stable. 4. Status post hypokalemia. 5. Hypertension, see above. 6. Chronic pain. Continue with duloxetine and naproxen. 7. Dyslipidemia. Continue with simvastatin. 8. Paroxysmal atrial fibrillation. Continue with metoprolol succinate as well as aspirin 325. 9. Hypothyroidism. Continue with levothyroxine. 10. Overactive bladder/chronic incontinence. Will have outpatient followup. 11. Gastroesophageal reflux disease (GERD). Continue with proton pump inhibitor (PPI). 12. Deep vein thrombosis (DVT) prophylaxis. Continue with Lovenox. DISCHARGE MEDICATIONS: The patient is being discharged home with the following medication list: - furosemide 20 mg by mouth daily - lisinopril 5 mg by mouth daily - metoprolol succinate 12.5 mg by mouth in the evening - midodrine 5 mg by mouth three times a day Continued medications include: - Aleve 220 mg by mouth as needed for pain - alpha-tocopherol 400 units by mouth at bedtime - aspirin 325 by mouth daily - duloxetine 30 mg by mouth at bedtime - glucosamine sulfate 550 mg by mouth three times a day - levothyroxine 75 mcg by mouth daily - lovastatin 40 mg by mouth daily - mirabegron base 50 mg by mouth at bedtime - multivitamins one tablet by mouth daily - omeprazole 20 mg by mouth daily - propafenone 150 mg by mouth twice a day Stopped medications include: - furosemide 20 mg by mouth every two days - furosemide 40 mg by mouth every two days - metolazone 2.5 mg by mouth daily - metoprolol succinate 12.5 mg by mouth in the morning DISCHARGE INSTRUCTIONS: The patient has been advised to followup with his primary care provider within the next seven days. He has been advised to remain compliant with treatment and medications and return to the emergency room if he experiences any problems. TIME SPENT ON DISCHARGE: Greater than 35 minutes.
== END 2017-01-01 18:25 | disposition home health service (06) | DRG 312 ==
LOC: EDBD 10:03 → M ED 10:03 → M ED INP 13:07 → M PCU 16:32 → M MSPAV 12-25 10:48
PROVIDERS: ADMIT Internal Medicine; ATTEND Internal Medicine
DX: I95.1 Orthostatic hypotension (principal); N17.9 Acute kidney failure, unspecified; I50.32 Chronic diastolic (congestive) heart failure; N18.3 Chronic kidney disease, stage 3 (moderate); M54.5 Low back pain; I48.0 Paroxysmal atrial fibrillation; E03.9 Hypothyroidism, unspecified; E78.5 Hyperlipidemia, unspecified; E87.6 Hypokalemia; K21.9 Gastro-esophageal reflux disease without esophagitis; Z79.899 Other long term (current) drug therapy; G89.29 Other chronic pain; N32.81 Overactive bladder; Z87.891 Personal history of nicotine dependence; Z79.82 Long term (current) use of aspirin; Z88.8 Allergy status to other drugs, medicaments and biological substances; R26.89 Other abnormalities of gait and mobility

== ENCOUNTER 2017-03-11 13:44 | Inpatient (IN) | payer OTHER ==
[2017-03-11 15:37] LABS: BASO % 0.3 % (0.0-1.0); EOS % 0.3 % (0.0-3.0); HEMOGLOBIN 16.7 g/dl (14.0-18.0); IMMATURE GRANULOCYTE # 0.1 10^3/uL (0-0); IMMATURE GRANULOCYTE % 0.4 % (0-0); LYMPH # 1.2 10^3/uL (1.5-4.5); LYMPH % 10.4 % (24.0-44.0); MEAN CORPUSCULAR HEMOGLOBIN 29.1 pg (27.0-33.0); MEAN CORPUSCULAR HGB CONC 32.7 g/dl (32.0-36.5); MONO # 0.4 10^3/uL (0.0-0.8); MONO % 3.1 % (0.0-5.0); NEUTROPHILS # 10.1 10^3/uL (1.8-7.7); NEUTROPHILS % 85.5 % (36.0-66.0); PLATELET COUNT, AUTOMATED 331 10^3/uL (150-450); RED BLOOD COUNT 5.73 10^6/uL (4.30-6.10); RED CELL DISTRIBUTION WIDTH 14.3 % (11.5-14.5); WHITE BLOOD COUNT 11.8 10^3/uL (4.0-10.0)
[2017-03-11] MEDS: ONDANSETRON 4MG/2ML VIAL (J2405) IV (15:43)
[2017-03-11] MEDS: MORPHINE 2 MG/ML 1ML SYRINGE IV ×2 (15:44→16:59)
[2017-03-11 15:47] LABS: INR 0.97
[2017-03-11 16:06] LABS: ALBUMIN 4.2 GM/DL (3.2-5.2); ALBUMIN/GLOBULIN RATIO 0.98 (1.00-1.93); ALKALINE PHOSPHATASE 81 U/L (45-117); ALT/SGPT 19 U/L (12-78); ANION GAP 11 MEQ/L (8-16); AST/SGOT 33 U/L (7-37); BILIRUBIN,DIRECT 0.2 MG/DL (0.0-0.2); BILIRUBIN,TOTAL 0.9 MG/DL (0.2-1.0); BLOOD UREA NITROGEN 33 MG/DL (7-18); CALCIUM LEVEL 9.4 MG/DL (8.8-10.2); CARBON DIOXIDE LEVEL 27 MEQ/L (21-32); CHLORIDE LEVEL 100 MEQ/L (98-107); CK-MB VALUE MASS 1.6 NG/ML (0.0-3.6); CPK CREATINE PHOSPHOKINASE 81 U/L (39-308); CREATININE FOR GFR 2.44 MG/DL (0.70-1.30); GLOMERULAR FILTRATION RATE 26.9 (>35); GLUCOSE, FASTING 158 MG/DL (83-110); LIPASE 310 U/L (73-393); MB/CK RELATIVE INDEX 1.97 (< OR =4); POTASSIUM SERUM 4.7 MEQ/L (3.5-5.1); SODIUM LEVEL 138 MEQ/L (136-145); TOTAL PROTEIN 8.5 GM/DL (6.4-8.2); TROPONIN I 0.07 NG/ML (< 0.10)
[2017-03-11 16:28] LABS: LACTIC ACID SEPSIS PROTOCOL 2.2 MMOL/L (0.4-2.0)
[2017-03-11] MEDS: FLEET ENEMA PR (17:39)
[2017-03-11] MEDS: NS 1,000 ML IV ×2 (18:00→20:35)
[2017-03-11] MEDS ORDERED: NS 1,000 ML IV (18:16)
[2017-03-11] MEDS ORDERED: BISACODYL 10 MG SUPP PR (18:30)
[2017-03-11] MEDS ORDERED: HEPARIN SOD (PORCINE) 5000 UNITS/ML VIAL SC (18:30)
[2017-03-11] MEDS ORDERED: ONDANSETRON 4MG/2ML VIAL (J2405) IV (18:30)
[2017-03-11 18:42] LABS: KETONE, URINE AUTO RFX TRACE mg/dL (NEGATIVE); MUCUS, URINE RFX SMALL (NEGATIVE); NITRITE, URINE AUTO RFX NEGATIVE (NEGATIVE); RBC, URINE AUTO RFX TNTC /HPF (0-3); SPECIFIC GRAVITY UR AUTO RFX 1.027 (1.002-1.035); SQUAM EPITHELIAL CELL UR AURFX 2 /HPF (0-6); TRANSITIONAL EPITHELIAL AU RFX 2 /HPF
[2017-03-11] MEDS: MOM 30ML SUSPENSION UDC PO ×2 (18:55→23:07)
[2017-03-11 19:01] LABS: LEUKOCYTE ESTERASE UR AUTO RFX 2+ (NEGATIVE); WBC, URINE AUTO RFX TNTC /HPF (0-3)
[2017-03-11] MEDS: MIRALAX *UNIT DOSE* 17GM PACKET PO (21:00)
[2017-03-11] MEDS: HEPARIN SOD (PORCINE) 5000 UNITS/ML VIAL SC (23:06)
[2017-03-11] MEDS: SENNA 8.6 MG TAB (SENOKOT) PO (23:06)
[2017-03-11] MEDS: ACETAMINOPHEN TAB 650MG DOSE (2X325MG) PO (23:18)
[2017-03-12] MEDS: CEFTRIAXONE SOD 1 GM in APPROPRIATE DILUENT 1 EA IV (00:17)
[2017-03-12] MEDS: MOM 30ML SUSPENSION UDC PO ×3 (01:00→09:00)
[2017-03-12] MEDS: NS 1,000 ML IV ×3 (04:50→21:35)
[2017-03-12] MEDS: ACETAMINOPHEN TAB 650MG DOSE (2X325MG) PO (04:51)
[2017-03-12] MEDS: HEPARIN SOD (PORCINE) 5000 UNITS/ML VIAL SC ×3 (06:42→21:35)
[2017-03-12 07:19] LABS: HEMATOCRIT 45.7 % (42.0-52.0); MEAN CORPUSCULAR HEMOGLOBIN 28.9 pg (27.0-33.0); MEAN CORPUSCULAR HGB CONC 32.8 g/dl (32.0-36.5); MEAN CORPUSCULAR VOLUME 88.1 fl (80.0-96.0); PLATELET COUNT, AUTOMATED 271 10^3/uL (150-450); RED BLOOD COUNT 5.19 10^6/uL (4.30-6.10); RED CELL DISTRIBUTION WIDTH 14.5 % (11.5-14.5); WHITE BLOOD COUNT 14.3 10^3/uL (4.0-10.0)
[2017-03-12 07:36] LABS: ANION GAP 12 MEQ/L (8-16); BLOOD UREA NITROGEN 48 MG/DL (7-18); CALCIUM LEVEL 8.5 MG/DL (8.8-10.2); CARBON DIOXIDE LEVEL 26 MEQ/L (21-32); CHLORIDE LEVEL 104 MEQ/L (98-107); GLUCOSE, FASTING 105 MG/DL (83-110); POTASSIUM SERUM 4.3 MEQ/L (3.5-5.1); SODIUM LEVEL 142 MEQ/L (136-145)
[2017-03-12] MEDS: KETOROLAC 30 MG/ML VIAL (J1885) IV (08:00)
[2017-03-12] MEDS: MAGNESIUM CITRATE 300 ML BTL PO (08:09)
[2017-03-12] MEDS: ONDANSETRON 4MG/2ML VIAL (J2405) IV (08:58)
[2017-03-12] MEDS: MIRALAX *UNIT DOSE* 17GM PACKET PO ×2 (08:59→21:00)
[2017-03-12] MEDS: PROPAFENONE 150 MG TAB PO ×2 (08:59→21:33)
[2017-03-12] MEDS: ASPIRIN ENTERIC 325 MG TAB PO (08:59)
[2017-03-12] MEDS: MORPHINE 2 MG/ML 1ML SYRINGE IV (08:59)
[2017-03-12] MEDS: SENNA 8.6 MG TAB (SENOKOT) PO ×2 (08:59→21:00)
[2017-03-12] MEDS: MIDODRINE 5 MG TAB PO ×2 (09:00→16:12)
[2017-03-12 09:05] LABS: MAGNESIUM LEVEL 2.9 MG/DL (1.8-2.4)
[2017-03-12] MEDS: LEVOTHYROXINE 75MCG TABLET (0.075MG) PO (09:06)
[2017-03-12] MEDS: SODIUM CHLORIDE 0.9% 1000 ML IV (11:16)
[2017-03-12] MEDS: PIPERACILLIN/TAZOBACTAM SOD 2.25 GM in APPROPRIATE DILUENT 1 EA IV ×2 (12:36→18:57)
[2017-03-12 13:11] LABS: LACTIC ACID SEPSIS PROTOCOL 3.6 MMOL/L (0.4-2.0)
[2017-03-12] MEDS: DULoxetine 30 MG CAP (CYMBALTA) PO (21:33)
[2017-03-12] MEDS: SIMVASTATIN 40 MG TAB PO (21:33)
[2017-03-12] MEDS: METOPROLOL SUCC *XL* 25MG TAB (TopROL *XL*) PO (21:34)
[2017-03-13] MEDS: PIPERACILLIN/TAZOBACTAM SOD 2.25 GM in APPROPRIATE DILUENT 1 EA IV ×3 (02:54→18:34)
[2017-03-13 05:00] LABS: HEMATOCRIT 43.8 % (42.0-52.0); HEMOGLOBIN 14.6 g/dl (14.0-18.0); MEAN CORPUSCULAR HEMOGLOBIN 29.6 pg (27.0-33.0); MEAN CORPUSCULAR HGB CONC 33.3 g/dl (32.0-36.5); MEAN CORPUSCULAR VOLUME 88.7 fl (80.0-96.0); PLATELET COUNT, AUTOMATED 218 10^3/uL (150-450); RED BLOOD COUNT 4.94 10^6/uL (4.30-6.10); RED CELL DISTRIBUTION WIDTH 14.9 % (11.5-14.5); WHITE BLOOD COUNT 14.3 10^3/uL (4.0-10.0)
[2017-03-13 05:33] LABS: ANION GAP 11 MEQ/L (8-16); BLOOD UREA NITROGEN 60 MG/DL (7-18); CALCIUM LEVEL 7.7 MG/DL (8.8-10.2); CARBON DIOXIDE LEVEL 24 MEQ/L (21-32); CHLORIDE LEVEL 110 MEQ/L (98-107); CREATININE FOR GFR 3.01 MG/DL (0.70-1.30); GLOMERULAR FILTRATION RATE 21.1 (>35); GLUCOSE, FASTING 112 MG/DL (83-110); POTASSIUM SERUM 4.3 MEQ/L (3.5-5.1); SODIUM LEVEL 145 MEQ/L (136-145)
[2017-03-13] MEDS: LEVOTHYROXINE 75MCG TABLET (0.075MG) PO (06:05)
[2017-03-13] MEDS: HEPARIN SOD (PORCINE) 5000 UNITS/ML VIAL SC ×3 (06:05→21:02)
[2017-03-13] MEDS: MIRALAX *UNIT DOSE* 17GM PACKET PO ×2 (08:24→21:00)
[2017-03-13] MEDS: SENNA 8.6 MG TAB (SENOKOT) PO ×2 (08:27→21:00)
[2017-03-13] MEDS: ASPIRIN ENTERIC 325 MG TAB PO (08:38)
[2017-03-13] MEDS: PROPAFENONE 150 MG TAB PO ×2 (08:38→21:01)
[2017-03-13] MEDS: NS 1,000 ML IV (10:11)
[2017-03-13 10:12] LABS: LACTIC ACID SEPSIS PROTOCOL 2.6 MMOL/L (0.4-2.0)
[2017-03-13 14:10] LABS: LACTIC ACID SEPSIS PROTOCOL 2.6 MMOL/L (0.4-2.0)
[2017-03-13] MEDS: NS 0.45% 1,000 ML IV (15:09)
[2017-03-13] MEDS: VANCOMYCIN HCL 1,000 MG, VIAL MATE ADAPTER 1 EACH in D5W 250 ML IV (15:09)
[2017-03-13] MEDS: SODIUM CHLORIDE 0.9% INJ 10 ML SYR IV (18:00)
[2017-03-13] MEDS: SIMVASTATIN 40 MG TAB PO (21:01)
[2017-03-13] MEDS: DULoxetine 30 MG CAP (CYMBALTA) PO (21:01)
[2017-03-14] MEDS: NS 0.45% 1,000 ML IV (00:58)
[2017-03-14] MEDS: PIPERACILLIN/TAZOBACTAM SOD 2.25 GM in APPROPRIATE DILUENT 1 EA IV ×3 (03:00→19:01)
[2017-03-14] MEDS: LEVOTHYROXINE 75MCG TABLET (0.075MG) PO (05:47)
[2017-03-14] MEDS: HEPARIN SOD (PORCINE) 5000 UNITS/ML VIAL SC ×3 (05:47→22:15)
[2017-03-14] MEDS: SODIUM CHLORIDE 0.9% INJ 10 ML SYR IV ×2 (05:48→19:51)
[2017-03-14 08:08] LABS: HEMATOCRIT 33.3 % (42.0-52.0); MEAN CORPUSCULAR HEMOGLOBIN 29.4 pg (27.0-33.0); MEAN CORPUSCULAR HGB CONC 33.3 g/dl (32.0-36.5); MEAN CORPUSCULAR VOLUME 88.3 fl (80.0-96.0); PLATELET COUNT, AUTOMATED 180 10^3/uL (150-450); RED BLOOD COUNT 3.77 10^6/uL (4.30-6.10); RED CELL DISTRIBUTION WIDTH 14.8 % (11.5-14.5)
[2017-03-14 08:10] LABS: POSITIVE MORPH POS FLAG
[2017-03-14 08:13] LABS: ADD MANUAL DIFFER YES; DIFF SLIDE NUMBER 134; HEMOGLOBIN 11.1 g/dl (14.0-18.0)
[2017-03-14] MEDS: PROPAFENONE 150 MG TAB PO ×2 (08:30→22:14)
[2017-03-14] MEDS: ASPIRIN ENTERIC 325 MG TAB PO (08:30)
[2017-03-14 08:34] LABS: ANION GAP 9 MEQ/L (8-16); BANDS 4 % (< 11); BLOOD UREA NITROGEN 42 MG/DL (7-18); CALCIUM LEVEL 6.8 MG/DL (8.8-10.2); CARBON DIOXIDE LEVEL 24 MEQ/L (21-32); CHLORIDE LEVEL 103 MEQ/L (98-107); CREATININE FOR GFR 1.71 MG/DL (0.70-1.30); GLOMERULAR FILTRATION RATE 40.6 (>35); GLUCOSE, FASTING 110 MG/DL (83-110); LYMPHOCYTES 5 % (16-52); MAGNESIUM LEVEL 3.4 MG/DL (1.8-2.4); MONOCYTES 4 % (0-8); NEUTROPHILS 87 % (35-75); PLATELET ESTIMATE NORMAL (NORMAL); POIKILOCYTOSIS 1+; SODIUM LEVEL 136 MEQ/L (136-145)
[2017-03-14 08:49] LABS: ERYTHROCYTE SEDIMENTATION RATE 35 mm/hr (0-30)
[2017-03-14] MEDS: MIRALAX *UNIT DOSE* 17GM PACKET PO ×2 (09:00→21:00)
[2017-03-14] MEDS: SENNA 8.6 MG TAB (SENOKOT) PO ×2 (09:00→21:00)
[2017-03-14] MEDS: METOPROLOL SUCC *XL* 25MG TAB (TopROL *XL*) PO (10:23)
[2017-03-14] MEDS: POTASSIUM CHLORIDE 10 MEQ SR TABLET PO (10:24)
[2017-03-14] MEDS: CALCIUM GLUCONATE 1,000 MG in D5W MINI-BAG PLUS 100 ML IV (10:25)
[2017-03-14 15:25] LABS: HEMATOCRIT 35.6 % (42.0-52.0); HEMOGLOBIN 11.7 g/dl (14.0-18.0)
[2017-03-14 21:26] LABS: ALBUMIN 2.5 GM/DL (3.2-5.2); ANION GAP 7 MEQ/L (8-16); BLOOD UREA NITROGEN 42 MG/DL (7-18); CALCIUM LEVEL 7.7 MG/DL (8.8-10.2); CARBON DIOXIDE LEVEL 27 MEQ/L (21-32); CHLORIDE LEVEL 107 MEQ/L (98-107); GLOMERULAR FILTRATION RATE 38.3 (>35); GLUCOSE, FASTING 132 MG/DL (83-110); PHOSPHORUS LEVEL 1.6 MG/DL (2.5-4.9); POTASSIUM SERUM 3.4 MEQ/L (3.5-5.1); SODIUM LEVEL 141 MEQ/L (136-145)
[2017-03-14] MEDS: DULoxetine 30 MG CAP (CYMBALTA) PO (22:14)
[2017-03-14] MEDS: SIMVASTATIN 40 MG TAB PO (22:15)
[2017-03-15] MEDS: PIPERACILLIN/TAZOBACTAM SOD 2.25 GM in APPROPRIATE DILUENT 1 EA IV ×3 (03:31→18:43)
[2017-03-15] MEDS: SODIUM CHLORIDE 0.9% INJ 10 ML SYR IV ×2 (04:12→19:40)
[2017-03-15] MEDS: LEVOTHYROXINE 75MCG TABLET (0.075MG) PO (05:56)
[2017-03-15] MEDS: HEPARIN SOD (PORCINE) 5000 UNITS/ML VIAL SC ×3 (05:56→21:11)
[2017-03-15 07:44] LABS: HEMATOCRIT 34.7 % (42.0-52.0); HEMOGLOBIN 11.6 g/dl (14.0-18.0); MEAN CORPUSCULAR HEMOGLOBIN 29.3 pg (27.0-33.0); MEAN CORPUSCULAR HGB CONC 33.4 g/dl (32.0-36.5); MEAN CORPUSCULAR VOLUME 87.6 fl (80.0-96.0); PLATELET COUNT, AUTOMATED 170 10^3/uL (150-450); RED BLOOD COUNT 3.96 10^6/uL (4.30-6.10); RED CELL DISTRIBUTION WIDTH 14.8 % (11.5-14.5); WHITE BLOOD COUNT 8.9 10^3/uL (4.0-10.0)
[2017-03-15 08:05] LABS: ANION GAP 6 MEQ/L (8-16); BLOOD UREA NITROGEN 28 MG/DL (7-18); C REACTIVE PROTEIN QUANTITATIV 9.86 MG/DL (0.00-0.30); CALCIUM LEVEL 7.6 MG/DL (8.8-10.2); CARBON DIOXIDE LEVEL 27 MEQ/L (21-32); CHLORIDE LEVEL 111 MEQ/L (98-107); CREATININE FOR GFR 1.32 MG/DL (0.70-1.30); GLOMERULAR FILTRATION RATE 54.7 (>35); GLUCOSE, FASTING 95 MG/DL (83-110); POTASSIUM SERUM 3.1 MEQ/L (3.5-5.1); SODIUM LEVEL 144 MEQ/L (136-145)
[2017-03-15] MEDS: ASPIRIN ENTERIC 325 MG TAB PO (08:26)
[2017-03-15] MEDS: METOPROLOL SUCC *XL* 25MG TAB (TopROL *XL*) PO (08:27)
[2017-03-15] MEDS: PROPAFENONE 150 MG TAB PO ×2 (08:28→21:10)
[2017-03-15] MEDS: MIRALAX *UNIT DOSE* 17GM PACKET PO ×2 (08:29→21:00)
[2017-03-15] MEDS: SENNA 8.6 MG TAB (SENOKOT) PO ×2 (08:30→21:00)
[2017-03-15] MEDS ORDERED: POTASSIUM CHLORIDE 10 MEQ SR TABLET PO (09:00)
[2017-03-15 09:12] LABS: HEMATOCRIT 37.1 % (42.0-52.0); HEMOGLOBIN 12.3 g/dl (14.0-18.0)
[2017-03-15 09:39] LABS: PHOSPHORUS LEVEL 1.6 MG/DL (2.5-4.9)
[2017-03-15] MEDS: POTASSIUM CHL PWD 20 MEQ PACKET PO ×2 (11:21→21:11)
[2017-03-15] MEDS: POTASSIUM PHOSPHATE INJ 15 MMOL in D5W 250 ML IV (13:43)
[2017-03-15] MEDS: DULoxetine 30 MG CAP (CYMBALTA) PO (21:10)
[2017-03-15] MEDS: SIMVASTATIN 40 MG TAB PO (21:10)
[2017-03-16] MEDS: PIPERACILLIN/TAZOBACTAM SOD 2.25 GM in APPROPRIATE DILUENT 1 EA IV ×3 (03:03→18:24)
[2017-03-16] MEDS: HEPARIN SOD (PORCINE) 5000 UNITS/ML VIAL SC ×2 (05:16→14:15)
[2017-03-16] MEDS: SODIUM CHLORIDE 0.9% INJ 10 ML SYR IV ×2 (05:17→17:30)
[2017-03-16] MEDS: LEVOTHYROXINE 75MCG TABLET (0.075MG) PO (05:18)
[2017-03-16 05:42] LABS: HEMATOCRIT 33.3 % (42.0-52.0); HEMOGLOBIN 10.9 g/dl (14.0-18.0); MEAN CORPUSCULAR HEMOGLOBIN 29.5 pg (27.0-33.0); MEAN CORPUSCULAR HGB CONC 32.7 g/dl (32.0-36.5); PLATELET COUNT, AUTOMATED 135 10^3/uL (150-450); RED CELL DISTRIBUTION WIDTH 14.9 % (11.5-14.5); WHITE BLOOD COUNT 7.4 10^3/uL (4.0-10.0)
[2017-03-16 06:06] LABS: ANION GAP 8 MEQ/L (8-16); BLOOD UREA NITROGEN 22 MG/DL (7-18); CALCIUM LEVEL 7.3 MG/DL (8.8-10.2); CARBON DIOXIDE LEVEL 26 MEQ/L (21-32); CHLORIDE LEVEL 112 MEQ/L (98-107); CREATININE FOR GFR 1.07 MG/DL (0.70-1.30); GLOMERULAR FILTRATION RATE > 60.0 (>35); GLUCOSE, FASTING 93 MG/DL (83-110); POTASSIUM SERUM 3.9 MEQ/L (3.5-5.1); SODIUM LEVEL 146 MEQ/L (136-145)
[2017-03-16 08:56] LABS: C REACTIVE PROTEIN QUANTITATIV 6.05 MG/DL (0.00-0.30)
[2017-03-16] MEDS: MIRALAX *UNIT DOSE* 17GM PACKET PO ×2 (09:41→22:14)
[2017-03-16] MEDS: SENNA 8.6 MG TAB (SENOKOT) PO ×2 (09:42→22:14)
[2017-03-16] MEDS: METOPROLOL SUCC *XL* 25MG TAB (TopROL *XL*) PO (09:42)
[2017-03-16] MEDS: ASPIRIN ENTERIC 325 MG TAB PO (09:42)
[2017-03-16] MEDS: PROPAFENONE 150 MG TAB PO ×2 (09:42→22:09)
[2017-03-16 10:43] LABS: MAGNESIUM LEVEL 2.8 MG/DL (1.8-2.4); PHOSPHORUS LEVEL 2.2 MG/DL (2.5-4.9)
[2017-03-16] MEDS: POTASSIUM PHOSPHATE INJ 15 MMOL in D5W 250 ML IV (12:15)
[2017-03-16] MEDS: SIMVASTATIN 40 MG TAB PO (22:09)
[2017-03-16] MEDS: DULoxetine 30 MG CAP (CYMBALTA) PO (22:09)
[2017-03-17] MEDS: PIPERACILLIN/TAZOBACTAM SOD 2.25 GM in APPROPRIATE DILUENT 1 EA IV ×3 (03:11→18:30)
[2017-03-17] MEDS: SODIUM CHLORIDE 0.9% INJ 10 ML SYR IV ×3 (03:12→17:50)
[2017-03-17] MEDS: LEVOTHYROXINE 75MCG TABLET (0.075MG) PO (05:13)
[2017-03-17 05:37] LABS: HEMATOCRIT 35.5 % (42.0-52.0); HEMOGLOBIN 11.4 g/dl (14.0-18.0); MEAN CORPUSCULAR HEMOGLOBIN 28.6 pg (27.0-33.0); MEAN CORPUSCULAR HGB CONC 32.1 g/dl (32.0-36.5); MEAN CORPUSCULAR VOLUME 89.2 fl (80.0-96.0); PLATELET COUNT, AUTOMATED 133 10^3/uL (150-450); RED BLOOD COUNT 3.98 10^6/uL (4.30-6.10); RED CELL DISTRIBUTION WIDTH 14.9 % (11.5-14.5); WHITE BLOOD COUNT 8.2 10^3/uL (4.0-10.0)
[2017-03-17 05:49] LABS: ANION GAP 5 MEQ/L (8-16); BLOOD UREA NITROGEN 14 MG/DL (7-18); CALCIUM LEVEL 7.5 MG/DL (8.8-10.2); CARBON DIOXIDE LEVEL 28 MEQ/L (21-32); CHLORIDE LEVEL 111 MEQ/L (98-107); GLOMERULAR FILTRATION RATE > 60.0 (>35); GLUCOSE, FASTING 93 MG/DL (83-110); POTASSIUM SERUM 3.9 MEQ/L (3.5-5.1); SODIUM LEVEL 144 MEQ/L (136-145)
[2017-03-17] MEDS: MIRALAX *UNIT DOSE* 17GM PACKET PO (07:26)
[2017-03-17] MEDS: SENNA 8.6 MG TAB (SENOKOT) PO (07:26)
[2017-03-17] MEDS: PROPAFENONE 150 MG TAB PO ×2 (07:55→21:02)
[2017-03-17] MEDS: ASPIRIN ENTERIC 325 MG TAB PO (07:55)
[2017-03-17] MEDS: METOPROLOL SUCC *XL* 25MG TAB (TopROL *XL*) PO (07:55)
[2017-03-17 10:43] LABS: MAGNESIUM LEVEL 2.5 MG/DL (1.8-2.4); PHOSPHORUS LEVEL 2.3 MG/DL (2.5-4.9)
[2017-03-17] MEDS: CHLORASEPTIC SPRAY MT (10:51)
[2017-03-17] MEDS: SIMVASTATIN 40 MG TAB PO (21:02)
[2017-03-17] MEDS: DULoxetine 30 MG CAP (CYMBALTA) PO (21:03)
[2017-03-18] MEDS: PIPERACILLIN/TAZOBACTAM SOD 2.25 GM in APPROPRIATE DILUENT 1 EA IV ×2 (03:23→11:00)
[2017-03-18] MEDS: LEVOTHYROXINE 75MCG TABLET (0.075MG) PO (05:36)
[2017-03-18] MEDS: SODIUM CHLORIDE 0.9% INJ 10 ML SYR IV (05:37)
[2017-03-18 06:03] LABS: HEMATOCRIT 35.6 % (42.0-52.0); HEMOGLOBIN 11.5 g/dl (14.0-18.0); MEAN CORPUSCULAR HEMOGLOBIN 28.9 pg (27.0-33.0); MEAN CORPUSCULAR HGB CONC 32.3 g/dl (32.0-36.5); MEAN CORPUSCULAR VOLUME 89.4 fl (80.0-96.0); PLATELET COUNT, AUTOMATED 141 10^3/uL (150-450); RED BLOOD COUNT 3.98 10^6/uL (4.30-6.10); RED CELL DISTRIBUTION WIDTH 14.9 % (11.5-14.5); WHITE BLOOD COUNT 11.1 10^3/uL (4.0-10.0)
[2017-03-18 06:16] LABS: ANION GAP 7 MEQ/L (8-16); BLOOD UREA NITROGEN 12 MG/DL (7-18); CALCIUM LEVEL 7.8 MG/DL (8.8-10.2); CARBON DIOXIDE LEVEL 27 MEQ/L (21-32); CHLORIDE LEVEL 109 MEQ/L (98-107); CREATININE FOR GFR 0.88 MG/DL (0.70-1.30); GLOMERULAR FILTRATION RATE > 60.0 (>35); GLUCOSE, FASTING 83 MG/DL (83-110); POTASSIUM SERUM 3.9 MEQ/L (3.5-5.1); SODIUM LEVEL 143 MEQ/L (136-145)
[2017-03-18 08:06] LABS: C REACTIVE PROTEIN QUANTITATIV 3.85 MG/DL (0.00-0.30); MAGNESIUM LEVEL 2.2 MG/DL (1.8-2.4)
[2017-03-18] MEDS: ASPIRIN ENTERIC 325 MG TAB PO (08:23)
[2017-03-18] MEDS: METOPROLOL SUCC *XL* 25MG TAB (TopROL *XL*) PO (08:24)
[2017-03-18] MEDS: PROPAFENONE 150 MG TAB PO ×2 (09:52→21:13)
[2017-03-18] MEDS: DULoxetine 30 MG CAP (CYMBALTA) PO (21:12)
[2017-03-18] MEDS: SIMVASTATIN 40 MG TAB PO (21:13)
[2017-03-18] MEDS: CHLORASEPTIC SPRAY MT (21:16)
[2017-03-19] MEDS: CHLORASEPTIC SPRAY MT (05:43)
[2017-03-19] MEDS: LEVOTHYROXINE 75MCG TABLET (0.075MG) PO (05:43)
[2017-03-19] MEDS: PROPAFENONE 150 MG TAB PO ×2 (08:03→20:58)
[2017-03-19] MEDS: ASPIRIN ENTERIC 325 MG TAB PO (08:03)
[2017-03-19] MEDS: METOPROLOL SUCC *XL* 25MG TAB (TopROL *XL*) PO (08:04)
[2017-03-19 14:10] LABS: HEMOGLOBIN 12.4 g/dl (14.0-18.0); MEAN CORPUSCULAR HEMOGLOBIN 29.5 pg (27.0-33.0); MEAN CORPUSCULAR HGB CONC 32.6 g/dl (32.0-36.5); MEAN CORPUSCULAR VOLUME 90.3 fl (80.0-96.0); PLATELET COUNT, AUTOMATED 195 10^3/uL (150-450); RED BLOOD COUNT 4.21 10^6/uL (4.30-6.10); WHITE BLOOD COUNT 12.8 10^3/uL (4.0-10.0)
[2017-03-19 14:38] LABS: ANION GAP 8 MEQ/L (8-16); BLOOD UREA NITROGEN 10 MG/DL (7-18); CARBON DIOXIDE LEVEL 26 MEQ/L (21-32); CHLORIDE LEVEL 106 MEQ/L (98-107); CREATININE FOR GFR 0.93 MG/DL (0.70-1.30); GLOMERULAR FILTRATION RATE > 60.0 (>35); GLUCOSE, FASTING 127 MG/DL (83-110); POTASSIUM SERUM 4.2 MEQ/L (3.5-5.1); SODIUM LEVEL 140 MEQ/L (136-145)
[2017-03-19] MEDS: DULoxetine 30 MG CAP (CYMBALTA) PO (20:59)
[2017-03-19] MEDS: SIMVASTATIN 40 MG TAB PO (20:59)
[2017-03-19] MEDS: ACETAMINOPHEN TAB 650MG DOSE (2X325MG) PO (21:00)
[2017-03-20] MEDS: LEVOTHYROXINE 75MCG TABLET (0.075MG) PO (06:04)
[2017-03-20 06:20] LABS: HEMATOCRIT 40.1 % (42.0-52.0); HEMOGLOBIN 12.8 g/dl (14.0-18.0); MEAN CORPUSCULAR HEMOGLOBIN 28.8 pg (27.0-33.0); MEAN CORPUSCULAR HGB CONC 31.9 g/dl (32.0-36.5); MEAN CORPUSCULAR VOLUME 90.3 fl (80.0-96.0); PLATELET COUNT, AUTOMATED 224 10^3/uL (150-450); RED BLOOD COUNT 4.44 10^6/uL (4.30-6.10); RED CELL DISTRIBUTION WIDTH 14.8 % (11.5-14.5); WHITE BLOOD COUNT 12.7 10^3/uL (4.0-10.0)
[2017-03-20 06:28] LABS: ANION GAP 6 MEQ/L (8-16); BLOOD UREA NITROGEN 10 MG/DL (7-18); CALCIUM LEVEL 8.8 MG/DL (8.8-10.2); CARBON DIOXIDE LEVEL 28 MEQ/L (21-32); CHLORIDE LEVEL 105 MEQ/L (98-107); CREATININE FOR GFR 0.89 MG/DL (0.70-1.30); GLOMERULAR FILTRATION RATE > 60.0 (>35); GLUCOSE, FASTING 89 MG/DL (83-110); POTASSIUM SERUM 3.9 MEQ/L (3.5-5.1); SODIUM LEVEL 139 MEQ/L (136-145)
[2017-03-20] MEDS: ENOXAPARIN 40 MG/0.4 ML SYRINGE (J1650) SC (09:00)
[2017-03-20] MEDS: PROPAFENONE 150 MG TAB PO ×2 (09:24→20:41)
[2017-03-20] MEDS: ASPIRIN ENTERIC 325 MG TAB PO (09:24)
[2017-03-20] MEDS: METOPROLOL SUCC *XL* 25MG TAB (TopROL *XL*) PO (09:25)
[2017-03-20 14:13] LABS: HEPARIN INDUCED PLATELET ABY 0.174 OD (0.000-0.400)
[2017-03-20] MEDS ORDERED: PROPOFOL 200 MG/20 ML VIAL As Ordered (14:42)
[2017-03-20] MEDS: SUCRALFATE 1 GM TAB PO ×2 (17:23→20:41)
[2017-03-20] MEDS: DULoxetine 30 MG CAP (CYMBALTA) PO (20:41)
[2017-03-20] MEDS: ACETAMINOPHEN TAB 650MG DOSE (2X325MG) PO (20:41)
[2017-03-20] MEDS: PANTOPRAZOLE 40MG TAB (PROTONIX) PO (20:41)
[2017-03-20] MEDS: SIMVASTATIN 40 MG TAB PO (20:41)
[2017-03-21] MEDS: LEVOTHYROXINE 75MCG TABLET (0.075MG) PO (05:30)
[2017-03-21 07:01] LABS: HEMATOCRIT 35.6 % (42.0-52.0); HEMOGLOBIN 11.6 g/dl (14.0-18.0); MEAN CORPUSCULAR HEMOGLOBIN 29.2 pg (27.0-33.0); MEAN CORPUSCULAR HGB CONC 32.6 g/dl (32.0-36.5); MEAN CORPUSCULAR VOLUME 89.7 fl (80.0-96.0); PLATELET COUNT, AUTOMATED 249 10^3/uL (150-450); RED BLOOD COUNT 3.97 10^6/uL (4.30-6.10); RED CELL DISTRIBUTION WIDTH 14.9 % (11.5-14.5); WHITE BLOOD COUNT 11.7 10^3/uL (4.0-10.0)
[2017-03-21 07:16] LABS: ANION GAP 8 MEQ/L (8-16); BLOOD UREA NITROGEN 10 MG/DL (7-18); CALCIUM LEVEL 8.3 MG/DL (8.8-10.2); CARBON DIOXIDE LEVEL 24 MEQ/L (21-32); CHLORIDE LEVEL 108 MEQ/L (98-107); CREATININE FOR GFR 0.84 MG/DL (0.70-1.30); GLOMERULAR FILTRATION RATE > 60.0 (>35); GLUCOSE, FASTING 91 MG/DL (83-110); POTASSIUM SERUM 3.9 MEQ/L (3.5-5.1); SODIUM LEVEL 140 MEQ/L (136-145)
[2017-03-21] MEDS: SUCRALFATE 1 GM TAB PO ×4 (08:32→22:00)
[2017-03-21] MEDS: PANTOPRAZOLE 40MG TAB (PROTONIX) PO ×2 (08:32→22:00)
[2017-03-21] MEDS: METOPROLOL SUCC *XL* 25MG TAB (TopROL *XL*) PO (08:32)
[2017-03-21] MEDS: PROPAFENONE 150 MG TAB PO ×2 (08:32→22:01)
[2017-03-21] MEDS: ACETAMINOPHEN TAB 650MG DOSE (2X325MG) PO (11:03)
[2017-03-21] MEDS: SIMVASTATIN 40 MG TAB PO (22:00)
[2017-03-21] MEDS: DULoxetine 30 MG CAP (CYMBALTA) PO (22:00)
[2017-03-22] MEDS: LEVOTHYROXINE 75MCG TABLET (0.075MG) PO (05:28)
[2017-03-22 06:26] LABS: HEMATOCRIT 33.4 % (42.0-52.0); HEMOGLOBIN 11.1 g/dl (14.0-18.0); MEAN CORPUSCULAR HEMOGLOBIN 29.8 pg (27.0-33.0); MEAN CORPUSCULAR HGB CONC 33.2 g/dl (32.0-36.5); MEAN CORPUSCULAR VOLUME 89.5 fl (80.0-96.0); PLATELET COUNT, AUTOMATED 291 10^3/uL (150-450); RED BLOOD COUNT 3.73 10^6/uL (4.30-6.10); RED CELL DISTRIBUTION WIDTH 15.1 % (11.5-14.5); WHITE BLOOD COUNT 9.6 10^3/uL (4.0-10.0)
[2017-03-22 06:50] LABS: ANION GAP 7 MEQ/L (8-16); BLOOD UREA NITROGEN 11 MG/DL (7-18); CALCIUM LEVEL 8.1 MG/DL (8.8-10.2); CARBON DIOXIDE LEVEL 25 MEQ/L (21-32); CHLORIDE LEVEL 108 MEQ/L (98-107); CREATININE FOR GFR 0.94 MG/DL (0.70-1.30); GLOMERULAR FILTRATION RATE > 60.0 (>35); GLUCOSE, FASTING 105 MG/DL (83-110); POTASSIUM SERUM 3.9 MEQ/L (3.5-5.1); SODIUM LEVEL 140 MEQ/L (136-145)
[2017-03-22] MEDS: PROPAFENONE 150 MG TAB PO ×2 (07:42→21:06)
[2017-03-22] MEDS: METOPROLOL SUCC *XL* 25MG TAB (TopROL *XL*) PO (07:42)
[2017-03-22] MEDS: PANTOPRAZOLE 40MG TAB (PROTONIX) PO ×2 (07:42→21:06)
[2017-03-22] MEDS: SUCRALFATE 1 GM TAB PO ×4 (07:42→21:06)
[2017-03-22] MEDS: SIMVASTATIN 40 MG TAB PO (21:06)
[2017-03-22] MEDS: ACETAMINOPHEN TAB 650MG DOSE (2X325MG) PO (21:06)
[2017-03-22] MEDS: DULoxetine 30 MG CAP (CYMBALTA) PO (21:06)
[2017-03-23 05:43] LABS: HEMATOCRIT 35.9 % (42.0-52.0); HEMOGLOBIN 11.3 g/dl (14.0-18.0); MEAN CORPUSCULAR HEMOGLOBIN 28.7 pg (27.0-33.0); MEAN CORPUSCULAR HGB CONC 31.5 g/dl (32.0-36.5); MEAN CORPUSCULAR VOLUME 91.1 fl (80.0-96.0); PLATELET COUNT, AUTOMATED 360 10^3/uL (150-450); RED BLOOD COUNT 3.94 10^6/uL (4.30-6.10); RED CELL DISTRIBUTION WIDTH 15.1 % (11.5-14.5); WHITE BLOOD COUNT 8.5 10^3/uL (4.0-10.0)
[2017-03-23 05:50] LABS: ANION GAP 5 MEQ/L (8-16); BLOOD UREA NITROGEN 12 MG/DL (7-18); CALCIUM LEVEL 8.1 MG/DL (8.8-10.2); CARBON DIOXIDE LEVEL 27 MEQ/L (21-32); CHLORIDE LEVEL 108 MEQ/L (98-107); GLOMERULAR FILTRATION RATE > 60.0 (>35); GLUCOSE, FASTING 89 MG/DL (83-110); POTASSIUM SERUM 3.9 MEQ/L (3.5-5.1); SODIUM LEVEL 140 MEQ/L (136-145)
[2017-03-23] MEDS: LEVOTHYROXINE 75MCG TABLET (0.075MG) PO (06:21)
[2017-03-23] MEDS: PROPAFENONE 150 MG TAB PO ×2 (07:46→20:03)
[2017-03-23] MEDS: SUCRALFATE 1 GM TAB PO ×4 (07:46→20:03)
[2017-03-23] MEDS: PANTOPRAZOLE 40MG TAB (PROTONIX) PO ×2 (07:46→20:03)
[2017-03-23] MEDS: METOPROLOL SUCC *XL* 25MG TAB (TopROL *XL*) PO (07:46)
[2017-03-23] MEDS: SIMVASTATIN 40 MG TAB PO (20:03)
[2017-03-23] MEDS: ACETAMINOPHEN TAB 650MG DOSE (2X325MG) PO (20:03)
[2017-03-23] MEDS: DULoxetine 30 MG CAP (CYMBALTA) PO (20:03)
[2017-03-24] MEDS: LEVOTHYROXINE 75MCG TABLET (0.075MG) PO (05:50)
[2017-03-24 06:16] LABS: HEMATOCRIT 35.1 % (42.0-52.0); MEAN CORPUSCULAR HEMOGLOBIN 29.2 pg (27.0-33.0); MEAN CORPUSCULAR HGB CONC 31.3 g/dl (32.0-36.5); MEAN CORPUSCULAR VOLUME 93.1 fl (80.0-96.0); PLATELET COUNT, AUTOMATED 393 10^3/uL (150-450); RED BLOOD COUNT 3.77 10^6/uL (4.30-6.10); RED CELL DISTRIBUTION WIDTH 15.1 % (11.5-14.5); WHITE BLOOD COUNT 9.1 10^3/uL (4.0-10.0)
[2017-03-24 06:37] LABS: ANION GAP 6 MEQ/L (8-16); BLOOD UREA NITROGEN 12 MG/DL (7-18); CALCIUM LEVEL 8.5 MG/DL (8.8-10.2); CARBON DIOXIDE LEVEL 27 MEQ/L (21-32); CHLORIDE LEVEL 106 MEQ/L (98-107); CREATININE FOR GFR 0.95 MG/DL (0.70-1.30); GLOMERULAR FILTRATION RATE > 60.0 (>35); GLUCOSE, FASTING 83 MG/DL (83-110); POTASSIUM SERUM 4.2 MEQ/L (3.5-5.1); SODIUM LEVEL 139 MEQ/L (136-145)
[2017-03-24] MEDS: SUCRALFATE 1 GM TAB PO ×4 (07:32→20:26)
[2017-03-24] MEDS: PANTOPRAZOLE 40MG TAB (PROTONIX) PO ×2 (07:33→20:26)
[2017-03-24] MEDS: PROPAFENONE 150 MG TAB PO ×2 (07:33→20:26)
[2017-03-24] MEDS: METOPROLOL SUCC *XL* 25MG TAB (TopROL *XL*) PO (07:34)
[2017-03-24] MEDS: SIMVASTATIN 40 MG TAB PO (20:26)
[2017-03-24] MEDS: DULoxetine 30 MG CAP (CYMBALTA) PO (20:26)
[2017-03-25] MEDS: LEVOTHYROXINE 75MCG TABLET (0.075MG) PO (05:44)
[2017-03-25 06:31] LABS: HEMATOCRIT 33.3 % (42.0-52.0); HEMOGLOBIN 10.8 g/dl (14.0-18.0); MEAN CORPUSCULAR HEMOGLOBIN 29.2 pg (27.0-33.0); MEAN CORPUSCULAR HGB CONC 32.4 g/dl (32.0-36.5); PLATELET COUNT, AUTOMATED 469 10^3/uL (150-450); RED CELL DISTRIBUTION WIDTH 14.9 % (11.5-14.5); WHITE BLOOD COUNT 9.4 10^3/uL (4.0-10.0)
[2017-03-25 06:50] LABS: ANION GAP 7 MEQ/L (8-16); BLOOD UREA NITROGEN 11 MG/DL (7-18); CALCIUM LEVEL 8.2 MG/DL (8.8-10.2); CARBON DIOXIDE LEVEL 26 MEQ/L (21-32); CHLORIDE LEVEL 103 MEQ/L (98-107); CREATININE FOR GFR 1.02 MG/DL (0.70-1.30); GLOMERULAR FILTRATION RATE > 60.0 (>35); GLUCOSE, FASTING 104 MG/DL (83-110); POTASSIUM SERUM 4.2 MEQ/L (3.5-5.1); SODIUM LEVEL 136 MEQ/L (136-145)
[2017-03-25] MEDS: PROPAFENONE 150 MG TAB PO ×2 (08:40→20:30)
[2017-03-25] MEDS: PANTOPRAZOLE 40MG TAB (PROTONIX) PO ×2 (08:40→20:30)
[2017-03-25] MEDS: SUCRALFATE 1 GM TAB PO ×4 (08:40→20:30)
[2017-03-25] MEDS: METOPROLOL SUCC *XL* 25MG TAB (TopROL *XL*) PO (08:41)
[2017-03-25] MEDS: SIMVASTATIN 40 MG TAB PO (20:30)
[2017-03-25] MEDS: DULoxetine 30 MG CAP (CYMBALTA) PO (20:30)
[2017-03-26] MEDS: LEVOTHYROXINE 75MCG TABLET (0.075MG) PO (05:46)
[2017-03-26 07:26] LABS: HEMATOCRIT 34.2 % (42.0-52.0); HEMOGLOBIN 11.2 g/dl (14.0-18.0); MEAN CORPUSCULAR HEMOGLOBIN 29.1 pg (27.0-33.0); MEAN CORPUSCULAR HGB CONC 32.7 g/dl (32.0-36.5); MEAN CORPUSCULAR VOLUME 88.8 fl (80.0-96.0); PLATELET COUNT, AUTOMATED 518 10^3/uL (150-450); RED BLOOD COUNT 3.85 10^6/uL (4.30-6.10); RED CELL DISTRIBUTION WIDTH 14.7 % (11.5-14.5)
[2017-03-26 07:50] LABS: ANION GAP 6 MEQ/L (8-16); BLOOD UREA NITROGEN 11 MG/DL (7-18); CALCIUM LEVEL 8.6 MG/DL (8.8-10.2); CARBON DIOXIDE LEVEL 28 MEQ/L (21-32); CHLORIDE LEVEL 102 MEQ/L (98-107); CREATININE FOR GFR 0.89 MG/DL (0.70-1.30); GLOMERULAR FILTRATION RATE > 60.0 (>35); GLUCOSE, FASTING 100 MG/DL (83-110); POTASSIUM SERUM 4.1 MEQ/L (3.5-5.1); SODIUM LEVEL 136 MEQ/L (136-145)
[2017-03-26] MEDS: PROPAFENONE 150 MG TAB PO ×2 (08:03→21:14)
[2017-03-26] MEDS: METOPROLOL SUCC *XL* 25MG TAB (TopROL *XL*) PO (08:03)
[2017-03-26] MEDS: PANTOPRAZOLE 40MG TAB (PROTONIX) PO ×2 (08:03→21:14)
[2017-03-26] MEDS: SUCRALFATE 1 GM TAB PO ×4 (08:03→21:14)
[2017-03-26] MEDS: DULoxetine 30 MG CAP (CYMBALTA) PO (21:14)
[2017-03-26] MEDS: SIMVASTATIN 40 MG TAB PO (21:14)
[2017-03-27] MEDS: LEVOTHYROXINE 75MCG TABLET (0.075MG) PO (06:21)
[2017-03-27 06:42] LABS: HEMATOCRIT 31.7 % (42.0-52.0); HEMOGLOBIN 10.5 g/dl (14.0-18.0); MEAN CORPUSCULAR HEMOGLOBIN 29.6 pg (27.0-33.0); MEAN CORPUSCULAR HGB CONC 33.1 g/dl (32.0-36.5); MEAN CORPUSCULAR VOLUME 89.3 fl (80.0-96.0); PLATELET COUNT, AUTOMATED 531 10^3/uL (150-450); RED BLOOD COUNT 3.55 10^6/uL (4.30-6.10); RED CELL DISTRIBUTION WIDTH 14.5 % (11.5-14.5); WHITE BLOOD COUNT 8.5 10^3/uL (4.0-10.0)
[2017-03-27 07:01] LABS: ANION GAP 8 MEQ/L (8-16); BLOOD UREA NITROGEN 12 MG/DL (7-18); CALCIUM LEVEL 8.5 MG/DL (8.8-10.2); CARBON DIOXIDE LEVEL 26 MEQ/L (21-32); CHLORIDE LEVEL 101 MEQ/L (98-107); CREATININE FOR GFR 1.01 MG/DL (0.70-1.30); GLOMERULAR FILTRATION RATE > 60.0 (>35); GLUCOSE, FASTING 96 MG/DL (83-110); POTASSIUM SERUM 4.3 MEQ/L (3.5-5.1); SODIUM LEVEL 135 MEQ/L (136-145)
[2017-03-27] MEDS: PROPAFENONE 150 MG TAB PO ×2 (09:20→21:08)
[2017-03-27] MEDS: SUCRALFATE 1 GM TAB PO ×4 (09:20→21:08)
[2017-03-27] MEDS: METOPROLOL SUCC *XL* 25MG TAB (TopROL *XL*) PO (09:20)
[2017-03-27] MEDS: PANTOPRAZOLE 40MG TAB (PROTONIX) PO ×2 (09:20→21:08)
[2017-03-27] MEDS: ACETAMINOPHEN TAB 650MG DOSE (2X325MG) PO (15:13)
[2017-03-27] MEDS: DULoxetine 30 MG CAP (CYMBALTA) PO (21:08)
[2017-03-27] MEDS: SIMVASTATIN 40 MG TAB PO (21:08)
[2017-03-28] MEDS: LEVOTHYROXINE 75MCG TABLET (0.075MG) PO (05:38)
[2017-03-28 06:52] LABS: HEMATOCRIT 31.9 % (42.0-52.0); HEMOGLOBIN 10.3 g/dl (14.0-18.0); MEAN CORPUSCULAR HEMOGLOBIN 28.5 pg (27.0-33.0); MEAN CORPUSCULAR HGB CONC 32.3 g/dl (32.0-36.5); MEAN CORPUSCULAR VOLUME 88.4 fl (80.0-96.0); PLATELET COUNT, AUTOMATED 567 10^3/uL (150-450); RED BLOOD COUNT 3.61 10^6/uL (4.30-6.10); RED CELL DISTRIBUTION WIDTH 14.6 % (11.5-14.5); WHITE BLOOD COUNT 7.3 10^3/uL (4.0-10.0)
[2017-03-28 07:09] LABS: ANION GAP 6 MEQ/L (8-16); BLOOD UREA NITROGEN 12 MG/DL (7-18); CALCIUM LEVEL 8.4 MG/DL (8.8-10.2); CARBON DIOXIDE LEVEL 27 MEQ/L (21-32); CHLORIDE LEVEL 101 MEQ/L (98-107); CREATININE FOR GFR 0.99 MG/DL (0.70-1.30); GLOMERULAR FILTRATION RATE > 60.0 (>35); GLUCOSE, FASTING 104 MG/DL (83-110); POTASSIUM SERUM 4.1 MEQ/L (3.5-5.1); SODIUM LEVEL 134 MEQ/L (136-145)
[2017-03-28] MEDS: SUCRALFATE 1 GM TAB PO (07:30)
[2017-03-28] MEDS: METOPROLOL SUCC *XL* 25MG TAB (TopROL *XL*) PO (09:00)
[2017-03-28] MEDS: PANTOPRAZOLE 40MG TAB (PROTONIX) PO (09:00)
[2017-03-28] MEDS: PROPAFENONE 150 MG TAB PO (09:00)
== END 2017-03-28 10:25 | DRG 871 ==
LOC: M PCU 03-14 03:07 → M MSPAV 03-16 13:58 → M ICU 03-12 12:59 → M MS4PR 03-26 22:50 → M ED 13:44 → M ED INP 19:05 → M MS4PR 21:45
PROC: 0DB78ZX Excision of Stomach, Pylorus, Via Natural or Artificial Opening Endoscopic, Diagnostic (ICD-10-PCS; principal; 2017-03-20 14:42)
PROC: 02HV33Z Insertion of Infusion Device into Superior Vena Cava, Percutaneous Approach (ICD-10-PCS; 2017-03-20 14:42)
DX: A41.9 Sepsis, unspecified organism (principal); J18.9 Pneumonia, unspecified organism; G93.41 Metabolic encephalopathy; E87.2 Acidosis; N39.0 Urinary tract infection, site not specified; I50.32 Chronic diastolic (congestive) heart failure; N17.9 Acute kidney failure, unspecified; I13.0 Hypertensive heart and chronic kidney disease with heart failure and stage 1 through stage 4 chronic kidney disease, or unspecified chronic kidney disease; K56.41 Fecal impaction; I48.0 Paroxysmal atrial fibrillation; N18.3 Chronic kidney disease, stage 3 (moderate); K52.9 Noninfective gastroenteritis and colitis, unspecified; B96.4 Proteus (mirabilis) (morganii) as the cause of diseases classified elsewhere; K25.9 Gastric ulcer, unspecified as acute or chronic, without hemorrhage or perforation; K44.9 Diaphragmatic hernia without obstruction or gangrene; E83.42 Hypomagnesemia; E87.6 Hypokalemia; K20.9 Esophagitis, unspecified; K40.90 Unilateral inguinal hernia, without obstruction or gangrene, not specified as recurrent; E89.0 Postprocedural hypothyroidism; K21.9 Gastro-esophageal reflux disease without esophagitis; E78.5 Hyperlipidemia, unspecified; Z98.41 Cataract extraction status, right eye; Z98.42 Cataract extraction status, left eye; Z87.891 Personal history of nicotine dependence; Z79.899 Other long term (current) drug therapy

== ENCOUNTER → 2018-11-06 | Outpatient (REF) | payer OTHER, MEDICAID ==
[~2018-11-06] MED LIST changes: -/METO25TAB PO; +ALEV220T22 PO; -BACTDSTA PO; +FURO20TA2 PO; +LEVO75TA4 PO; +LISI-542 PO; +LOVA40TA PO; +METO1TAB32 PO; +METO1TAB87 PO; +METO25TA PO; +MIDO5TA PO; +MYRB50TA PO; +NATU400T PO; +PANT40TA3 PO; +SUCR1TA PO; +SULF1TAB23 PO; +VITACHTA PO
== END ==
LOC: M LAB LCGH 14:06
PROVIDERS: ATTEND Surgery
DX: M25.871 Other specified joint disorders, right ankle and foot (principal)